=== PATIENT | female | born 1950 | race African-American/Black ===

== ENCOUNTER 2016-09-14 20:49 | Inpatient (IN) | payer OTHER ==
--- NOTE | ~2016-09-14 | OP ---
Record Of Operation [facility] [address] [place]. [address] NAME: YA SIMONS : 46 STATUS : ADM IN [facility]#: [id number] AGE: 66 ADM/REG DATE : 09/14/16 MR#: [id number] REPORT SERV DATE: 09/19/16 DICTATED BY: IVANA LUO DATE: 09/19/16 REPORT STATUS : Draft TRANSCRIBED BY: MODL DATE: 09/19/16 DATE OF PROCEDURE: 09/19/2016 PROCEDURE: Bronchoscopy, with bronchoalveolar lavage, and transbronchial biopsies. INDICATION FOR PROCEDURE: The patient is an end-stage renal disease patient, who is 66 years old, who has recurrent pneumonia, who was originally seen on our Consultative Service four days ago. She presents with a repeat right lower lobe pneumonia. The patient has been given broad-spectrum antibiotics, however, due to the recurrent abnormality on the CT scan in the right lower lobe, and concern of other etiologies other than pneumonia, it was felt that a bronchoscopy with transbronchial biopsies is warranted. PREOPERATIVE DIAGNOSIS: Right lower lobe pneumonia. POSTOPERATIVE DIAGNOSIS: Right lower lobe pneumonia. PROCEDURE NOTE: The patient was brought to the endoscopy suite. She was given induction agents, and intubated for airway protection, and sedation was per Anesthesiology. We placed the bronchoscope through the ET tube and examined the airways, we instilled lidocaine two aliquots into the lungs. She had good sedation throughout the procedure. She had easy friability of the endobronchial tissue on the left, and was noted to have significant secretions at that site. She also had significant secretions at the site of her right lung. We conducted a bronchoalveolar lavage of the right lower lobe. We then conducted six passes of transbronchial biopsies using fluoroscopy to ensure we did not go through the pleura. We obtain adequate tissue. It was felt that she had an underlying pneumonia and reactive mediastinal adenopathy is likely the etiology of the adenopathy. An endobronchial ultrasound, trans needle aspiration biopsy was not performed in this procedure, and just conducted the bronchoscopy with BAL and transbronchial biopsies. OUTCOME: Successful bronchoscopy for culture and cytologic tissue. HFQ/SHILOH Ivana Luo MD / [id number] CC: Laura Varner M.D.
--- NOTE | ~2016-09-14 | HP ---
History And Physical [facility] [id number] [place]. [address] NAME: YA SIMONS : 46 STATUS : ADM Charli PAT#: [id number] AGE: 66 ADM/REG DATE : 09/14/16 MR#: [id number] REPORT SERV DATE: 09/15/16 DICTATED BY: DATE: REPORT STATUS : Draft TRANSCRIBED BY: MODL DATE: 09/15/16 DATE OF ADMISSION: 09/14/2016 CHIEF COMPLAINT: Fever, shortness of breath. HISTORY OF PRESENT ILLNESS: Ms. Simons is a very pleasant 66-year-old black female with end- stage renal disease, dialyzes Monday, Monday, and Monday at [facility]. She was hospitalized in June with pneumonia and ended up with significant pleural effusion to the left, requiring VATS and chest tube. She was discharged to rehab, has done well, and been back at home, was doing well until yesterday. She went to dialysis and felt well before. During the treatment, she became more short of breath, had fevers, therefore was sent from the dialysis unit to the emergency room. In the emergency room, there was concern over some chest pain, however Ms. Simons does not relate any chest pain to me and she only had a mild elevation in her troponin at 0.06; however, on physical exam of her lungs, she has significant crackles to the right lower lobe and some fine crackles to the left lower lobe. She has had fevers up to 101.5 overnight and most likely has pneumonia and is going to be admitted for further evaluation and treatment. PAST MEDICAL HISTORY: End-stage renal disease, recent pneumonia with pleural effusion and VATS with chest tube, diabetes, hypertension, hyperlipidemia, coronary artery disease status post bypass, CVA, secondary hyperparathyroidism, anemia, peripheral vascular disease, osteoarthritis, obesity. ALLERGIES: CODEINE. FAMILY MEDICAL HISTORY: Positive for cardiovascular disease and diabetes. SOCIAL HISTORY: She lives with her . Both, her and are on dialysis. No tobacco, alcohol, or illicit drug use. MEDICATIONS: At home, acetaminophen, albuterol, Norvasc, vitamin C, aspirin, Tums, Coreg, Voltaren, Colace, Neurontin, Levemir, Humalog, melatonin, and multivitamin with minerals, Protonix, MiraLAX, and Zocor. PHYSICAL EXAMINATION: VITAL SIGNS: Temp 100, blood pressure 171/79, pulse 109, respiratory rate 14, O2 saturation is 96%. GENERAL: This is a pleasant, cooperative, black female. She is awake, alert, and oriented, answers questions appropriately. HEENT: Normocephalic, atraumatic. Conjunctivae clear. Sclerae anicteric. Oral mucosa is moist. NECK: No neck vein distention. RESPIRATIONS: Even and labored with just a minimal exertion of moving from bed to chair. She has significant crackles to the right lower lobe and a faint crackles to the left lower lobe. HEART: Rate is regular. She does have a faint systolic murmur. No rub or gallop. History And Physical [address] [place]. [address] NAME: YA SIMONS : 46 STATUS : ADM Charli PAT#: [id number] AGE: 66 ADM/REG DATE : 09/14/16 MR#: [id number] REPORT SERV DATE: 09/15/16 DICTATED BY: DATE: REPORT STATUS : Draft TRANSCRIBED BY: MODL DATE: 09/15/16 ABDOMEN: Soft, nontender. No CVA tenderness. BACK: Within normal limits. EXTREMITIES: No edema, cyanosis, or clubbing. SKIN: No unusual rash, skin lesions. NEURO: Generalized weakness. No focal deficits. Mood and affect, pleasant and appropriate. PERTINENT LABS AND X-RAYS: A chest x-ray is read as negative, but she still has some fluid on the left. Troponin 0.06. WBC 7, H and H 11 and 34, platelets 213,000. Sodium 135, potassium 4.8, chloride 98, CO2 25, BUN of 14, creatinine 4.47, and magnesium 1.7. Procalcitonin of 0.4, lactate 2.2. IMPRESSION: 1. Pneumonia. 2. Recent pleural effusions to the left requiring VATS and chest tube. 3. End-stage renal disease. 4. Hypertension. 5. Diabetes. 6. Coronary artery disease, status post bypass. PLAN: Admit to medical floor and monitor bed. Empiric cefepime and vancomycin have been started. We will go ahead and consult Pulmonology. Check CT of the chest and dialysis tomorrow. Repeat troponins. Usual medicines as appropriate that does include her beta dahiana. Further orders and recommendations pending clinical course. WILLIAM/MODL FELIPE Ortiz / [id number] CC: Laura Varner M.D.
--- NOTE | ~2016-09-14 | DS ---
Discharge Summary [facility] [address] [place]. [address] NAME: YA SIMONS : 46 STATUS : DIS IN PAT#: [id number] AGE: 66 ADM/REG DATE : 09/14/16 MR#: [id number] REPORT SERV DATE: 09/30/16 DICTATED BY: CLAUS SALINAS DATE: 09/29/16 REPORT STATUS : Draft TRANSCRIBED BY: SHILOH DATE: 09/29/16 Data Collection from hospitalization DISCHARGE DIAGNOSES: 1. End-stage renal disease. 2. Recurrent . 3. Uwe-ffqecqc-dlkyilxzz diabetes mellitus. 4. Hypertension. 5. Coronary artery disease with history of coronary artery bypass grafting. 6. Pneumonia. CONSULTATION: Isai Vargas PA-C. PROCEDURES PERFORMED: 1. CT of the chest without contrast, 09/15/2016. 2. Bronchoscopy with bronchoalveolar lavage and transbronchial biopsies 09/19/2016. PATHOLOGY: 1. Lung right lower lobe biopsy small carcinoid , hyperplasia, and patchy alveolar hemorrhage, otherwise minimal histologic changes. 2. Lung right lower lobe BAL for cytology, thin prep, negative for atypical or malignant cells. Bdhc-kz-ldlkdqyj acute inflammation. MEDICATIONS: Norvasc 10 mg at bedtime, aspirin 81 mg daily, Voltaren 2 g topically twice daily as needed, Tums E-X 1500 mg with meals, Coreg 6.25 mg twice daily, Neurontin 100 mg at bedtime, Levemir 10 units at bedtime, melatonin 5 mg at bedtime, multivitamin with minerals one daily, Protonix 40 mg every morning, Zocor 40 mg at bedtime, ProAir 2 puffs every 4 hours as needed, Colace 100 mg twice daily as needed, MiraLAX powder one packet daily as needed, Humalog U-200 KwikPen as directed, Tylenol 500 mg daily as needed. CONDITION AT DISCHARGE: Upon discharge, she did appear to be doing well and had no complaints. DISPOSITION: She had been discharged home to continue a renal diet with activity as directed. She was to follow up with Dr. Ivana Luo on 12/06/2016, follow up with her primary care physician as needed. HOSPITAL COURSE: This 66-year-old female had end-stage renal disease and dialyzes Monday, Monday, and Monday at [facility]. She was hospitalized in June with pneumonia and ended up with significant pleural effusion to the left requiring VATS and chest tube. She was discharged to rehab and had done well and had been back at home and was doing well until the day of admission. She went to dialysis and felt well before, during the treatment, she had become more short of breath, had fever, and therefore was sent from dialysis unit to the emergency room. In the emergency room, there was concern over some chest pain, however, patient did not relate any chest pain to me and she only had a mild elevation in her troponin at 0.06, however, on physical exam of her lungs, she had significant crackles to the right lower lobe and some fine crackles to the left lower lobe. She had fever up to 101.5 overnight and most likely had pneumonia and was going to be Discharge Summary [address] [address] NAME: YA SIMONS : 46 STATUS : DIS IN PAT#: [id number] AGE: 66 ADM/REG DATE : 09/14/16 MR#: [id number] REPORT SERV DATE: 09/30/16 DICTATED BY: CLAUS SALINAS DATE: 09/29/16 REPORT STATUS : Draft TRANSCRIBED BY: SHILOH DATE: 09/29/16 admitted for further evaluation and treatment. Upon admission to the hospital, she had been placed on a renal diet. She was begun on electrolyte replacement guidelines. She was given vancomycin 1 g IV x1 dose, as well as cefepime I g IV x1 dose. She was begun on Dilaudid 1 mg IV every 6 hours as needed, later that same day, IV Dilaudid was discontinued and she was placed instead on Lortab 5/325 one every 6 hours as needed. Following the day of admission, she did undergo the above CT of the chest without contrast. She was continued on supportive care. She had been seen by Isai Vargas for recurrent pneumonia and Levaquin was also added to complete healthcare acquired pneumonia coverage and immunoglobulin acid was to be checked, and she was also to undergo a bedside swallow, on 09/16, she was still short of breath. She was afebrile and her vital signs were stable. She was continued on supportive care. She was continued on hemodialysis during hospitalization. Bronchoscopy had been discussed with the patient, she was agreeable to proceed with this. On 09/17, she did state that she had felt worse and was noted to have a nonproductive cough. She was afebrile and had been continued on her current medications. She did undergo a bedside swallowing evaluation and a regular diet with thin liquids was recommended. No overt signs or symptoms of aspiration were noted. On 09/18, she did state that she was feeling some better, her WBCs were at 6.5. She was continued on her current medications. She was still complaining of cough with difficulty expectorating. She was noted to have yellow sputum. She was afebrile and her vital signs had remained stable. She was continued on bronchodilators. She was noted to have had only minimal improvement despite treatment with Levaquin. On 09/19, she had no new complaints noted. She did undergo the above bronchoscopy. She had tolerated this well and was transferred to the recovery room. On 09/20, she was awake and alert and was noted to have chest congestion, however, had no productive cough noted. She was continued on her current medications. On 09/21, she did look much better. She was afebrile and her vital signs had remained stable. She was felt to be breathing okay and had only an occasional cough noted. She was off antibiotics and had no fever noted. On 09/22, she did undergo a modified barium swallow and a mechanically soft diet with chopped meats with gravy and thin liquids was recommended. She did remain in stable condition and was then discharged on 09/23 with the above instructions. Information collected by: Fatmata Ayala.I.T. I submit the above information as my discharge summary. RW/MODL Claus Salinas M.D. / [id number] CC: Laura Varner M.D. Hisham F. Qutob, MD
--- NOTE | ~2016-09-14 | CN ---
Consultation Report [facility] [address]. [address] NAME: YA SIMONS : 46 STATUS : ADM IN PAT#: [id number] AGE: 66 ADM/REG DATE : 09/14/16 MR#: [id number] REPORT SERV DATE: 09/15/16 DICTATED BY: ISAI VALERIO DATE: 09/15/16 REPORT STATUS : Draft TRANSCRIBED BY: MODL DATE: 09/15/16 CONSULT NOTE DATE OF CONSULTATION: 09/15/2016 CHIEF COMPLAINT: Recurrent pneumonia. HISTORY OF PRESENT ILLNESS: Ms Ya Simons is a very pleasant 66-year-old female with a past medical history significant for previous pneumonias, loculated parapneumonic left effusion requiring video-assisted thoracoscopic surgery, and end-stage renal disease, who presents to [facility] with symptoms concerning for a new pneumonia. It should be noted that Ms Ya Nazario was hospitalized as recently as June. She has had a difficult course in the short interim. Ms Simons was seen by our Pulmonary Service on her last hospitalization. She has not had the opportunity to establish in our outpatient clinic. She is on chronic oxygen supplementation at 2 L. She is compliant with this therapy. She does have an albuterol inhaler, which she uses infrequently. She describes herself as a never smoker. She largely denies symptomatology related to obstructive sleep apnea. She has difficulty quantifying her exercise tolerance today. Again, the patient was seen in 06/2016 when she presented with pneumonia like symptoms as well as a left pleural effusion. The patient did undergo thoracentesis with 950 mL of straw colored fluid removed. Unfortunately, the lung did not fully expand and she eventually underwent chest tube placement with lytic therapy. Despite lytic therapy, she had persistence in her entrapped lung and as such, Cardiothoracic surgery was consulted for more definitive therapy. She did eventually undergo video-assisted thoracoscopic surgery with decortication of the lung. Cultures and pathology were negative from this procedure. The patient slowly improved and eventually transition to rehab where she resided for at least four weeks. She states that she had been home for approximately two weeks when she began to experience toothache. As recently as yesterday she states she began to "feel poorly," and she did develop a fever of over 100 degrees. She did present to our dialysis clinic for her regular dialysis, but was eventually sent to [facility] for more definitive therapy. Upon arrival, she was found to have a white blood cell count of 7300. She did have a chest x-ray performed, which did not demonstrate a focal infiltrate. There were some areas of atelectasis noted in the bases as well as changes consistent with her recent surgery. As she is somewhat more short of breath, demonstrating a productive cough as well as concomitant fever. She has been referred to the Pulmonary Service for assessment for recurrent pneumonia. Currently, Ms Simons is in Radiology holding, awaiting a CT of the chest. She states that she is chilling. She does demonstrate a productive cough that is mostly yellow in nature. She states that she has some mild wheezing in her chest. She has had previous pneumonia. She denies a formal diagnosis of COPD or chronic bronchitis. Consultation Report [facility] [address] [facility] [place]. [address] NAME: YA SIMONS : 46 STATUS : ADM IN [facility]#: [id number] AGE: 66 ADM/REG DATE : 09/14/16 MR#: [id number] REPORT SERV DATE: 09/15/16 DICTATED BY: ISAI VALERIO DATE: 09/15/16 REPORT STATUS : Draft TRANSCRIBED BY: SHILOH DATE: 09/15/16 The patient does have past cardiac history including coronary artery disease, status post CABG. She does have known hypertension. She currently denies any murmurs, angina, or palpitations or worsening lower extremity edema. In regard to constitutional symptoms, she currently denies nausea, vomiting, abdominal pain, or edema. PAST MEDICAL HISTORY: 1. End-stage renal disease, on dialysis Monday, Monday, Monday. 2. Diabetes mellitus. 3. Peripheral neuropathy. 4. Coronary artery disease, status post CABG. 5. Peripheral arterial disease. 6. Hypertension. 7. Loculated left pleural effusion, status post VATS. PAST SURGICAL HISTORY: 1. CABG. 2. Total abdominal hysterectomy with bilateral salpingo-oophorectomy. 3. Left upper extremity fistula placement. 4. VATS, left chest. FAMILY HISTORY: The patient denies family history of lung disease. SOCIAL HISTORY: The patient is . She has children, who are in good health. She previously worked at several occupations, the most notable may be working at a [employer], where she may have been exposed to significant airborne fibers. TOBACCO/ALCOHOL: As previously mentioned, the patient describes herself as a never smoker. She denies any recent alcohol or illicit drug use. MEDICATIONS: 1. Albuterol. 2. Amlodipine 10 mg. 3. Aspirin 81 mg. 4. Carvedilol 6.25 mg. 5. Gabapentin 100 mg. 6. Insulin. 7. Pantoprazole 40 mg. 8. Simvastatin 40 mg. 9. Melatonin 5 mg. ALLERGIES: THE PATIENT HAS KNOWN ALLERGY TO CODEINE. Consultation Report [facility] [id number] [facility] [place]. [address] NAME: YA SIMONS : 46 STATUS : ADM IN [facility]#: [id number] AGE: 66 ADM/REG DATE : 09/14/16 MR#: [id number] REPORT SERV DATE: 09/15/16 DICTATED BY: ISAI VALERIO DATE: 09/15/16 REPORT STATUS : Draft TRANSCRIBED BY: MODMayra DATE: 09/15/16 REVIEW OF SYSTEMS: A complete review of systems was performed with pertinent positives and negatives contained within the body of the HPI. PHYSICAL EXAMINATION: VITAL SIGNS: Blood pressure full 166/77, heart rate 104, T-max is 101.5, respiratory rate is 18, SpO2 100% on 2.5 L nasal cannula. GENERAL: The patient is a pleasant, well-nourished/well-developed female who is not currently exhibiting any signs of acute distress. Skin: Skin with appropriate texture and turgor. No rashes, lesions, or ulcers. Nails are clear without cyanosis or clubbing. HEENT: Head: Skull is normocephalic/atraumatic. Facies symmetric. No masses or lesions. Eyes: Sclera anicteric, conjunctiva pink without exudates. Extra ocular movements intact. Pupils are equal, round, reactive to light. Ears: Auricles and tragus without pain to palpation. Hearing is grossly intact. Nose: Bilateral nasal patency. Sinuses without tenderness upon palpation. Throat: The patient has poor dentition. Lips, oral mucosa, tongue, palate, and pharynx pink and moist without lesions. Uvula rises equally on phonation. Tongue midline without deviation. NECK: Neck supple. Trachea midline. No cervical lymphadenopathy appreciated. THORAX/LUNGS: Thorax is symmetric with equal chest rise. Breath sounds audible through entire field. No rales. Expiratory wheezing and scattered rhonchi throughout. CARDIOVASCULAR: Regular rate and rhythm. No murmurs, rubs, or gallops. Anterior chest without thrills, heaves, or lifts. ABDOMEN: Soft. Non-distended, non-tender. Active bowel sounds in all four quadrants. No hepatosplenomegaly noted. PERIPHERAL VASCULAR: No edema. No varicosities, stasis changes, open sores, ulcerations, or phlebitis. 2+ pulses in radial and dorsalis pedis. MUSCULOSKELETAL: Full AROM and PROM in all joints. No evidence of erythema, deformity, or crepitus. NEUROLOGIC: CN II - XII grossly intact. Good muscle bulk and tone bilaterally. Strength 5/5 throughout. PSYCHIATRIC: Patient demonstrates good judgment and insight. Pt is A&O x 3. ACCESSORY DATA: Reveals a white blood cell count of 7300, hemoglobin and hematocrit are 11.3 and 34.0. Procalcitonin is 0.40. Creatinine is 4.47. Troponins x2 are 0.06. IMPRESSION: 1. Recurrent pneumonia. 2. Recent VATS for loculated left pleural effusion. 3. End-stage renal disease. 4. Hypertension. 5. Diabetes mellitus. 6. Coronary artery disease, status post CABG. Consultation Report [address] [place]. [address] NAME: YA SIMONS : 46 STATUS : ADM IN [facility]#: [id number] AGE: 66 ADM/REG DATE : 09/14/16 MR#: [id number] REPORT SERV DATE: 09/15/16 DICTATED BY: ISAI VALERIO DATE: 09/15/16 REPORT STATUS : Draft TRANSCRIBED BY: MODMayra DATE: 09/15/16 PLAN: At this time, the patient has been provided vancomycin and cefepime. We will add Levaquin to complete HCAP coverage. We will surveil her white blood cell count moving forward. We agree with her previously ordered CT of the chest. As far as her source for recurrent infections, we will check an immunoglobulin assay. We will check a bedside swallow. Previous labs have been checked for the possibility of an interstitial process. We will consider this as well moving forward. We will also provide her with aggressive pulmonary toilet. The aforementioned impression and plan has been discussed with Dr. Jules, who will follow further recommendations. We thank you for this consult and look forward to participating in the care of Ms Ya Simons. GBS/MODL Isai Valerio PA-C / [id number] CC: Marito Salinas M.D.
[~2016-09-14 20:49] MED LIST: *UNABLE1; *UNABLE3; ACTOS45 PO; ALTA2.5 PO; AMOXIL500 MG PO; ASAB PO; COREG PO; COREG12 PO; COREG25 PO; COREG6 PO; CRESTOR PO; CRESTOR20 MG PO; DSS PO; FERROUS SULF325 M1 PO; FLAG500TAB PO; HALF81 PO; HALFPRIN PO; HYDROCHLOROT25 MG PO; INSNOV7030 SC; IRON PO; IRON325 MG PO; K500 PO; LEVEMFLXPN SC; LEVEMIR SC; LIPITOR40 PO; LISINOPRIL PO; MOBIC PO; MOBIC15 MG PO; NEBULIZER SOLUTION INH; NEUR100 PO; NORCO1 TA1 PO; NORV10 PO; NORV5 PO; NORVASC PO; NOVOLOG SC; NOVOPEN SC; PCET PO; PLAVIX PO; PR25 PO; PREM625 PO; PRILO PO; PRIN20 PO; PRINZIDE1 TA1 PO; PROTONIX PO; PROTONIX20 MG PO; RAMIPRIL PO; SODBICAR10 PO; T PO; TUMSROLL PO; ZESTRIL20 MG PO; ZOL50 PO; [UNRECOGNIZED DRUG - CODE] PO
[2016-09-14 21:13] LABS: BASOPHILS 0.3 %; BASOPHILS ABSOLUTE 0.02 10/3/uL (0.0-0.16); EOSINOPHILS 0.7 %; EOSINOPHILS ABSOLUTE 0.05 10/3/uL (0.0-0.53); ER CBC TAT 0 Hrs 09 Mins; HEMOGLOBIN 11.3 g/dL (12.0-16.0); IMMATURE GRANULOCYTES 0.1 %; IMMATURE GRANULOCYTES ABSOLUTE 0.01 10/3/uL (0.0-0.11); LYMPHOCYTES 18.3 %; LYMPHOCYTES ABSOLUTE 1.34 10/3/uL (0.67-4.30); MEAN CORPUS HGB CONC 33.2 g/dL (32.0-36.0); MEAN CORPUSCULAR HEMOGLOB 28.8 pg (26.0-34.0); MEAN CORPUSCULAR VOLUME 86.7 fL (80-100); MEAN PLATELET VOLUME 9.7 fL (9.2-13.0); MONOCYTES ABSOLUTE 0.81 10/3/uL (0.21-1.20); NEUTROPHILS 69.6 %; NEUTROPHILS ABSOLUTE 5.11 10/3/uL (2.02-8.40); RBC DISTRIBUTION WIDTH 15.4 % (12.0-16.0); RED CELL COUNT 3.92 10/6/uL (4.0-5.6); WHITE BLOOD CELLS 7.3 10/3/uL (4.5-10.5)
[2016-09-14 21:15] LABS: MANUAL DIFF NO %; PLATELET COUNT 213 10/3/uL (150-400)
[2016-09-14 21:33] LABS: CALCIUM, SERUM 8.7 MG/DL (8.5-10.4); CHLORIDE, SERUM 98 MMOL/L (96-112); CO2 (CARBON DIOXIDE) 25 MMOL/L (24-34); POTASSIUM, SERUM 4.8 MMOL/L (3.5-5.3); SODIUM, SERUM 135 MMOL/L (135-148)
[2016-09-14 21:34] LABS: BUN (BLOOD UREA NITROGEN) 14 MG/DL (6-23); CREATININE 4.47 MG/DL (0.55-1.02); GFR AFRICAN AMERICAN 11 ML/MIN (>=60); GFR NON AFRICAN AMERICAN 9 ML/MIN (>=60); GLUCOSE, SERUM 191 MG/DL (60-99)
[2016-09-14 21:35] LABS: CHEST PAIN PROFILE TAT 0 Hrs 31 Mins; TROPONIN I 0.06 NG/ML (<0.05)
[2016-09-14 22:28] LABS: INTERNATIONAL NORMAL RATI 1.1 UNITS (-); PARTIAL THROMBO TIME 24.3 SEC (22.5-37.2); PROTIME (NOT ORD) 14.1 SEC (12.0-14.5)
[2016-09-14] MEDS ORDERED: PROAIR HFA INH (23:47)
[2016-09-14] MEDS ORDERED: COREG6 PO (23:47)
[2016-09-14] MEDS ORDERED: DSS PO (23:47)
[2016-09-14] MEDS ORDERED: NORV10 PO (23:47)
[2016-09-14] MEDS ORDERED: ASAB PO (23:47)
[2016-09-14] MEDS ORDERED: LEVEMIR SC (23:48)
[2016-09-14] MEDS ORDERED: NEUR100 PO (23:48)
[2016-09-14] MEDS ORDERED: MULTIVIT/MIN PO (23:48)
[2016-09-14] MEDS ORDERED: MIRALAX POWDER1 PKT PO (23:48)
[2016-09-14] MEDS ORDERED: TUMS E-X750 M2 PO (23:49)
[2016-09-14] MEDS ORDERED: PROTONIX PO (23:49)
[2016-09-14] MEDS ORDERED: HUMALOG KW200 UNIT/1 (23:49)
[2016-09-14] MEDS ORDERED: ACET500CAP PO (23:50)
[2016-09-14] MEDS ORDERED: MELATONIN5 M1 PO (23:51)
[2016-09-14] MEDS ORDERED: ZOCOR40 PO (23:51)
[2016-09-14] MEDS ORDERED: VOLTAREN1 % TOP (23:52)
[2016-09-14] MEDS ORDERED: VITC500 PO (23:52)
[2016-09-15 05:36] LABS: TROPONIN I 0.06 NG/ML (<0.05)
[2016-09-15 14:32] LABS: PROCALCITONIN 0.45 ng/mL (<0.5)
[2016-09-15 16:30] LABS: ASCORBIC ACID (UR NOT ORDER) NEG (NEG); BILIRUBIN, URINE NEGATIVE (NEG); KETONE, URINE NEGATIVE (NEG); LEUKOCYTE ESTERASE(NOT OR NEG (NEG); WBC (NOT ORDERED) (RFLEX) < 1 (0-5)
[2016-09-15 17:32] LABS: TROPONIN I 0.04 NG/ML (<0.05)
[2016-09-16 08:33] LABS: BASOPHILS 0.2 %; BASOPHILS ABSOLUTE 0.01 10/3/uL (0.0-0.16); EOSINOPHILS 0 %; HEMATOCRIT 31.1 % (36.0-48.0); HEMOGLOBIN 10.6 g/dL (12.0-16.0); LYMPHOCYTES ABSOLUTE 1.61 10/3/uL (0.67-4.30); MEAN CORPUS HGB CONC 34.1 g/dL (32.0-36.0); MEAN CORPUSCULAR VOLUME 85.2 fL (80-100); MEAN PLATELET VOLUME 9.5 fL (9.2-13.0); MONOCYTES 9.1 %; MONOCYTES ABSOLUTE 0.59 10/3/uL (0.21-1.20); NEUTROPHILS 65.7 %; NEUTROPHILS ABSOLUTE 4.24 10/3/uL (2.02-8.40); PLATELET COUNT 189 10/3/uL (150-400); RED CELL COUNT 3.65 10/6/uL (4.0-5.6); WHITE BLOOD CELLS 6.5 10/3/uL (4.5-10.5)
[2016-09-16 08:34] LABS: MANUAL DIFF NO %
[2016-09-16 08:45] LABS: ALBUMIN 2.5 G/DL (3.5-5.0); CALCIUM, SERUM 8.2 MG/DL (8.5-10.4); CHLORIDE, SERUM 102 MMOL/L (96-112); CO2 (CARBON DIOXIDE) 25 MMOL/L (24-34); PHOSPHORUS, SERUM 3.5 MG/DL (2.5-4.5); POTASSIUM, SERUM 4.8 MMOL/L (3.5-5.3); SODIUM, SERUM 137 MMOL/L (135-148)
[2016-09-16 08:46] LABS: BUN (BLOOD UREA NITROGEN) 41 MG/DL (6-23); CREATININE 8.36 MG/DL (0.55-1.02); GFR AFRICAN AMERICAN 5 ML/MIN (>=60); GFR NON AFRICAN AMERICAN 4 ML/MIN (>=60); GLUCOSE, SERUM 96 MG/DL (60-99)
[2016-09-19 04:58] LABS: BASOPHILS 0.6 %; BASOPHILS ABSOLUTE 0.05 10/3/uL (0.0-0.16); EOSINOPHILS 8.4 %; EOSINOPHILS ABSOLUTE 0.66 10/3/uL (0.0-0.53); HEMATOCRIT 30.7 % (36.0-48.0); HEMOGLOBIN 10.4 g/dL (12.0-16.0); IMMATURE GRANULOCYTES 0.3 %; IMMATURE GRANULOCYTES ABSOLUTE 0.02 10/3/uL (0.0-0.11); LYMPHOCYTES 36.3 %; LYMPHOCYTES ABSOLUTE 2.86 10/3/uL (0.67-4.30); MEAN CORPUS HGB CONC 33.9 g/dL (32.0-36.0); MEAN CORPUSCULAR HEMOGLOB 28.8 pg (26.0-34.0); MEAN PLATELET VOLUME 9.8 fL (9.2-13.0); MONOCYTES 7.2 %; MONOCYTES ABSOLUTE 0.57 10/3/uL (0.21-1.20); NEUTROPHILS 47.2 %; NEUTROPHILS ABSOLUTE 3.72 10/3/uL (2.02-8.40); PLATELET COUNT 216 10/3/uL (150-400); RBC DISTRIBUTION WIDTH 14.5 % (12.0-16.0); RED CELL COUNT 3.61 10/6/uL (4.0-5.6); WHITE BLOOD CELLS 7.9 10/3/uL (4.5-10.5)
[2016-09-19 05:03] LABS: MANUAL DIFF NO %; PROTIME (NOT ORD) 13.1 SEC (12.0-14.5)
[2016-09-19 05:09] LABS: ALBUMIN 2.7 G/DL (3.5-5.0); CALCIUM, SERUM 8.4 MG/DL (8.5-10.4); CHLORIDE, SERUM 98 MMOL/L (96-112); CO2 (CARBON DIOXIDE) 21 MMOL/L (24-34); GLUCOSE, SERUM 102 MG/DL (60-99); POTASSIUM, SERUM 4.9 MMOL/L (3.5-5.3); SODIUM, SERUM 134 MMOL/L (135-148)
[2016-09-19 05:15] LABS: BUN (BLOOD UREA NITROGEN) 76 MG/DL (6-23); GFR AFRICAN AMERICAN 4 ML/MIN (>=60); GFR NON AFRICAN AMERICAN 3 ML/MIN (>=60); PHOSPHORUS, SERUM 5.1 MG/DL (2.5-4.5)
[2016-09-19 14:53] LABS: BD FL SOURCE (NOT ORD) BAL; BF TOTAL CELL CT (NOT ORD 2612 /MM3; BODY FLUID RBC (NOT ORD) 3000 /MM3
[2016-09-19 16:29] LABS: BD FL LYMPH (NOT ORD) 23 %; BF BASO (NOT OF) 0 %; BF LARGE MONONUCLEAR 74 %; BODY FLUID EOS (NOT ORD) 0 %; BODY FLUID SEG (NOT ORD) 3 %
[2016-09-20 05:31] LABS: BASOPHILS 0.5 %; BASOPHILS ABSOLUTE 0.03 10/3/uL (0.0-0.16); EOSINOPHILS 4.4 %; EOSINOPHILS ABSOLUTE 0.27 10/3/uL (0.0-0.53); HEMATOCRIT 30.7 % (36.0-48.0); HEMOGLOBIN 10.4 g/dL (12.0-16.0); IMMATURE GRANULOCYTES 0.2 %; IMMATURE GRANULOCYTES ABSOLUTE 0.01 10/3/uL (0.0-0.11); LYMPHOCYTES 34.1 %; MEAN CORPUS HGB CONC 33.9 g/dL (32.0-36.0); MEAN CORPUSCULAR HEMOGLOB 28.8 pg (26.0-34.0); MEAN PLATELET VOLUME 9.9 fL (9.2-13.0); MONOCYTES 8.9 %; MONOCYTES ABSOLUTE 0.55 10/3/uL (0.21-1.20); NEUTROPHILS 51.9 %; NEUTROPHILS ABSOLUTE 3.19 10/3/uL (2.02-8.40); PLATELET COUNT 223 10/3/uL (150-400); RBC DISTRIBUTION WIDTH 14.5 % (12.0-16.0); RED CELL COUNT 3.61 10/6/uL (4.0-5.6); WHITE BLOOD CELLS 6.2 10/3/uL (4.5-10.5)
[2016-09-20 05:32] LABS: MANUAL DIFF NO %
[2016-09-20 05:39] LABS: ALBUMIN 3.2 G/DL (3.5-5.0); CHLORIDE, SERUM 101 MMOL/L (96-112); GLUCOSE, SERUM 101 MG/DL (60-99); POTASSIUM, SERUM 4.3 MMOL/L (3.5-5.3); SODIUM, SERUM 139 MMOL/L (135-148)
[2016-09-20 05:40] LABS: BUN (BLOOD UREA NITROGEN) 41 MG/DL (6-23); CO2 (CARBON DIOXIDE) 27 MMOL/L (24-34); CREATININE 6.54 MG/DL (0.55-1.02); GFR AFRICAN AMERICAN 7 ML/MIN (>=60); GFR NON AFRICAN AMERICAN 6 ML/MIN (>=60); PHOSPHORUS, SERUM 4.1 MG/DL (2.5-4.5)
[2016-09-21 13:35] LABS: BASOPHILS 0.1 %; BASOPHILS ABSOLUTE 0.01 10/3/uL (0.0-0.16); EOSINOPHILS 4.1 %; EOSINOPHILS ABSOLUTE 0.38 10/3/uL (0.0-0.53); HEMOGLOBIN 9.5 g/dL (12.0-16.0); IMMATURE GRANULOCYTES 0.4 %; IMMATURE GRANULOCYTES ABSOLUTE 0.04 10/3/uL (0.0-0.11); LYMPHOCYTES 26.2 %; LYMPHOCYTES ABSOLUTE 2.42 10/3/uL (0.67-4.30); MEAN CORPUS HGB CONC 34.7 g/dL (32.0-36.0); MEAN CORPUSCULAR HEMOGLOB 28.8 pg (26.0-34.0); MEAN PLATELET VOLUME 9.3 fL (9.2-13.0); MONOCYTES ABSOLUTE 0.74 10/3/uL (0.21-1.20); NEUTROPHILS 61.2 %; NEUTROPHILS ABSOLUTE 5.63 10/3/uL (2.02-8.40); PLATELET COUNT 231 10/3/uL (150-400); RBC DISTRIBUTION WIDTH 14.7 % (12.0-16.0)
[2016-09-21 13:36] LABS: HEMATOCRIT 27.4 % (36.0-48.0); MANUAL DIFF NO %; WHITE BLOOD CELLS 9.2 10/3/uL (4.5-10.5)
[2016-09-21 13:47] LABS: ALBUMIN 3.1 G/DL (3.5-5.0); CHLORIDE, SERUM 96 MMOL/L (96-112); CO2 (CARBON DIOXIDE) 24 MMOL/L (24-34); POTASSIUM, SERUM 4.7 MMOL/L (3.5-5.3)
[2016-09-21 13:48] LABS: BUN (BLOOD UREA NITROGEN) 71 MG/DL (6-23); CREATININE 9.02 MG/DL (0.55-1.02); GFR AFRICAN AMERICAN 5 ML/MIN (>=60); GFR NON AFRICAN AMERICAN 4 ML/MIN (>=60); GLUCOSE, SERUM 204 MG/DL (60-99); PHOSPHORUS, SERUM 5.2 MG/DL (2.5-4.5); SODIUM, SERUM 132 MMOL/L (135-148)
[2016-09-22 06:30] LABS: HEMOGLOBIN 10.3 g/dL (12.0-16.0); MEAN CORPUS HGB CONC 33.6 g/dL (32.0-36.0); MEAN PLATELET VOLUME 9.8 fL (9.2-13.0); PLATELET COUNT 250 10/3/uL (150-400); RBC DISTRIBUTION WIDTH 14.7 % (12.0-16.0); RED CELL COUNT 3.55 10/6/uL (4.0-5.6); WHITE BLOOD CELLS 7.9 10/3/uL (4.5-10.5)
[2016-09-22 06:33] LABS: HEMATOCRIT 30.7 % (36.0-48.0); MANUAL DIFF YES %; MEAN CORPUSCULAR VOLUME 86.5 fL (80-100)
[2016-09-22 06:50] LABS: ALBUMIN 3.4 G/DL (3.5-5.0); CALCIUM, SERUM 9.1 MG/DL (8.5-10.4); CHLORIDE, SERUM 102 MMOL/L (96-112); CO2 (CARBON DIOXIDE) 21 MMOL/L (24-34); POTASSIUM, SERUM 4.6 MMOL/L (3.5-5.3); SODIUM, SERUM 137 MMOL/L (135-148)
[2016-09-22 06:51] LABS: BUN (BLOOD UREA NITROGEN) 36 MG/DL (6-23); CREATININE 5.59 MG/DL (0.55-1.02); GFR AFRICAN AMERICAN 8 ML/MIN (>=60); GFR NON AFRICAN AMERICAN 7 ML/MIN (>=60); GLUCOSE, SERUM 109 MG/DL (60-99); PHOSPHORUS, SERUM 2.8 MG/DL (2.5-4.5)
[2016-09-22 06:53] LABS: EOSINOPHILS 2 %; EOSINOPHILS ABSOLUTE (CALC) 0.16 10/3/uL (0.0-0.53); LYMPHOCYTES 29 %; LYMPHOCYTES ABSOLUTE (CALC) 2.29 10/3/uL (0.67-4.30); MONOCYTES 4 %; MONOCYTES ABSOLUTE (CALC) 0.32 10/3/uL (0.21-1.20); NEUTROPHILS ABSOLUTE (CALC) 5.14 10/3/uL (2.02-8.40); PLATELET ESTIMATE ADQ (ADEQUATE); RBC MORPHOLOGY NORM (NORMAL); SEGMENTED NEUTROPHIL (0) 65 %; TOTAL NUCLEATED CELLS 100
[2016-09-23 09:49] LABS: BASOPHILS 0.3 %; BASOPHILS ABSOLUTE 0.03 10/3/uL (0.0-0.16); EOSINOPHILS 4.2 %; EOSINOPHILS ABSOLUTE 0.43 10/3/uL (0.0-0.53); HEMOGLOBIN 8.9 g/dL (12.0-16.0); IMMATURE GRANULOCYTES 0.6 %; IMMATURE GRANULOCYTES ABSOLUTE 0.06 10/3/uL (0.0-0.11); LYMPHOCYTES 29.3 %; LYMPHOCYTES ABSOLUTE 2.99 10/3/uL (0.67-4.30); MEAN CORPUS HGB CONC 33.1 g/dL (32.0-36.0); MEAN CORPUSCULAR HEMOGLOB 28.4 pg (26.0-34.0); MEAN CORPUSCULAR VOLUME 85.9 fL (80-100); MEAN PLATELET VOLUME 9.4 fL (9.2-13.0); MONOCYTES 10.4 %; MONOCYTES ABSOLUTE 1.06 10/3/uL (0.21-1.20); NEUTROPHILS 55.2 %; NEUTROPHILS ABSOLUTE 5.64 10/3/uL (2.02-8.40); PLATELET COUNT 318 10/3/uL (150-400); RBC DISTRIBUTION WIDTH 14.6 % (12.0-16.0); RED CELL COUNT 3.13 10/6/uL (4.0-5.6); WHITE BLOOD CELLS 10.2 10/3/uL (4.5-10.5)
[2016-09-23 09:51] LABS: HEMATOCRIT 26.9 % (36.0-48.0)
[2016-09-23 09:52] LABS: MANUAL DIFF NO %
[2016-09-23 10:02] LABS: ALBUMIN 3.3 G/DL (3.5-5.0); BUN (BLOOD UREA NITROGEN) 60 MG/DL (6-23); CALCIUM, SERUM 9.1 MG/DL (8.5-10.4); CHLORIDE, SERUM 96 MMOL/L (96-112); CO2 (CARBON DIOXIDE) 26 MMOL/L (24-34); CREATININE 8.45 MG/DL (0.55-1.02); GFR AFRICAN AMERICAN 5 ML/MIN (>=60); GFR NON AFRICAN AMERICAN 4 ML/MIN (>=60); GLUCOSE, SERUM 149 MG/DL (60-99); POTASSIUM, SERUM 3.9 MMOL/L (3.5-5.3); SODIUM, SERUM 133 MMOL/L (135-148)
[2016-09-23] MEDS ORDERED: DUONEB INH ×2 (16:02)
[2016-09-23] MEDS ORDERED: TRANSSCOP TOP (16:03)
[2017-01-16] MEDS ORDERED: SEVE800T PO (17:23)
[2017-01-16] MEDS ORDERED: CATAPRES2 TOP (17:24)
[2017-01-16] MEDS ORDERED: NITROSTAT0.4 MG SL (17:25)
== END 2016-09-23 17:06 | disposition home or self-care (01) | DRG 166 ==
LOC: ER 20:49 → CDU1 23:28 → 6NO 09-15 14:32
PROVIDERS: Emergency Medicine; Internal Medicine Critical Care Medicine; Internal Medicine Nephrology; Nurse Practitioner; Registered Nurse
PROC: 0BBF8ZX Excision of Right Lower Lung Lobe, Via Natural or Artificial Opening Endoscopic, Diagnostic (ICD-10-PCS; principal; 2016-09-19 13:15)
PROC: 5A1D60Z (ICD-10-PCS; 2016-09-19 13:15)
PROC: 0B9F8ZX Drainage of Right Lower Lung Lobe, Via Natural or Artificial Opening Endoscopic, Diagnostic (ICD-10-PCS; 2016-09-19 13:15)
DX: J18.9 Pneumonia, unspecified organism (principal); N18.6 End stage renal disease; E11.22 Type 2 diabetes mellitus with diabetic chronic kidney disease; N25.81 Secondary hyperparathyroidism of renal origin; I12.0 Hypertensive chronic kidney disease with stage 5 chronic kidney disease or end stage renal disease; E78.5 Hyperlipidemia, unspecified; I25.10 Atherosclerotic heart disease of native coronary artery without angina pectoris; R09.02 Hypoxemia; E11.40 Type 2 diabetes mellitus with diabetic neuropathy, unspecified; I73.9 Peripheral vascular disease, unspecified; M19.90 Unspecified osteoarthritis, unspecified site; Z95.1 Presence of aortocoronary bypass graft; Z86.73 Personal history of transient ischemic attack (TIA), and cerebral infarction without residual deficits; Z87.01 Personal history of pneumonia (recurrent); Z82.49 Family history of ischemic heart disease and other diseases of the circulatory system; Z83.3 Family history of diabetes mellitus; Z99.81 Dependence on supplemental oxygen; Z90.710 Acquired absence of both cervix and uterus; Z57.5 Occupational exposure to toxic agents in other industries
CPT/HCPCS: 71010; 71250; 74230; 80048; 80069; 81001; 82784; 82962; 83605; 83735; 84145; 84484; 85025; 85610; 85730; 87015; 87040; 87070; 87102; 87116; 87205; 87449; 87641; 88112; 88305; 88341; 88342; 89051; 92610-GN; 92611-GN; 93005; 94640; 94667; 94668; 97116-GP; 97161-GP; 97165-GO; 99285; A9270-GY; G0257; J0330; J0692; J1956; J2250; J2370; J2550; J3010; J3370; P9047

== ENCOUNTER 2016-10-04 11:38 | Day surgery (SDC) | payer OTHER ==
--- NOTE | ~2016-10-04 | OP ---
Record Of Operation [facility] [address] [place]. [address] NAME: YA SIMONS : 46 STATUS : [facility]#: [id number] AGE: 66 ADM/REG DATE : 10/04/16 MR#: [id number] REPORT SERV DATE: 10/06/16 DICTATED BY: AKIL LIM DATE: 10/05/16 REPORT STATUS : Draft TRANSCRIBED BY: MODL DATE: 10/05/16 DATE OF PROCEDURE: 10/04/2016 PREOPERATIVE DIAGNOSIS: End-stage renal disease. POSTOPERATIVE DIAGNOSIS: End-stage renal disease. SURGERY PERFORMED: Placement of arterial venous graft from right brachial artery to brachial vein using a 4-7 step graft, Lafayette-Renaldo. SURGEON: Akil Lim M.D. ASSIST: Rios. DESCRIPTION OF PROCEDURE: The patient was placed under IV sedation. The right arm was prepped and draped in a sterile fashion. The brachial artery was exposed through a transverse incision made just above the antecubital fossa, carried through skin and subcutaneous tissue down to the brachial artery. It was dissected from surrounding tissue, then encircled doubly with vessel loops. A longitudinal incision was made in the upper arm over the brachial artery proximal. Dissection was carried down through the subcutaneous tissue down to the brachial vein. This was doubly looped with vessel loops. The vein was occluded proximally and distally. A 4-7 Lafayette-Renaldo graft was pulled through a tunnel connecting the two incisions. The vein was then opened with 11 blade and extended with Hay scissors. End-to-side anastomosis was done using 6-0 Prolene suture. When this was completed, a clamp was placed on the graft. The brachial artery then occluded proximally and distally. Arteriotomy was made with 11 blade and extended with Hay scissors. The 4 mm end was then sewn end to side using running 6-0 Prolene suture. When this was completed, retrograde and prograde flushing carried out at both anastomoses. The sutures were then tied and clamps were released. The patient was found to have good flow through the graft and also good brachial pulse distal to the arterial anastomosis. The wounds were then irrigated and closed with interrupted 3-0 Vicryl for subcutaneous tissue. Skin was closed with 4-0 Monocryl subcuticular stitch. Dermabond dressing applied. Estimated blood loss 50 mL. The patient tolerated the procedure well, went to recovery room in good condition. MG/MODL Akil Lim M.D. / [id number] CC: Laura Caldera M.D.
[~2016-10-04 11:38] MED LIST changes: +ACET500CAP PO; +DUONEB INH; +HUMALOG KW200 UNIT/1; +MELATONIN5 M1 PO; +MIRALAX POWDER1 PKT PO; +MULTIVIT/MIN PO; +PROAIR HFA INH; +TRANSSCOP TOP; +TUMS E-X750 M2 PO; +VITC500 PO; +VOLTAREN1 % TOP; +ZOCOR40 PO
[2016-10-04 12:38] LABS: HEMATOCRIT 27.3 % (36.0-48.0); HEMOGLOBIN 9.4 g/dL (12.0-16.0)
[2016-10-04 12:52] LABS: BUN (BLOOD UREA NITROGEN) 27 MG/DL (6-23); CALCIUM, SERUM 9.1 MG/DL (8.5-10.4); CHLORIDE, SERUM 98 MMOL/L (96-112); CO2 (CARBON DIOXIDE) 24 MMOL/L (24-34); CREATININE 6.51 MG/DL (0.55-1.02); GFR AFRICAN AMERICAN 7 ML/MIN (>=60); GFR NON AFRICAN AMERICAN 6 ML/MIN (>=60); GLUCOSE, SERUM 85 MG/DL (60-99); POTASSIUM, SERUM 4.9 MMOL/L (3.5-5.3); SODIUM, SERUM 133 MMOL/L (135-148)
[2017-01-16] MEDS ORDERED: SEVE800T PO (17:23)
[2017-01-16] MEDS ORDERED: CATAPRES2 TOP (17:24)
[2017-01-16] MEDS ORDERED: NITROSTAT0.4 MG SL (17:25)
== END 2016-10-04 15:59 | disposition home or self-care (01) ==
LOC: SDC 11:38
PROVIDERS: Surgery Vascular Surgery
PROC: 03170JD Bypass Right Brachial Artery to Upper Arm Vein with Synthetic Substitute, Open Approach (ICD-10-PCS; principal; 2016-10-04 12:45)
DX: I12.0 Hypertensive chronic kidney disease with stage 5 chronic kidney disease or end stage renal disease (principal); E10.22 Type 1 diabetes mellitus with diabetic chronic kidney disease; N18.6 End stage renal disease; I69.954 Hemiplegia and hemiparesis following unspecified cerebrovascular disease affecting left non-dominant side; I25.10 Atherosclerotic heart disease of native coronary artery without angina pectoris; Z95.1 Presence of aortocoronary bypass graft; Z99.2 Dependence on renal dialysis; Z88.5 Allergy status to narcotic agent; Z79.4 Long term (current) use of insulin; Z79.82 Long term (current) use of aspirin; Z79.899 Other long term (current) drug therapy
CPT/HCPCS: 80048; 82962; 85014; 85018; 93005; C1768; J2250; J2370; J3010; J3370

== ENCOUNTER 2016-10-07 06:53 | Inpatient (IN) | payer OTHER ==
--- NOTE | ~2016-10-07 | OP ---
Record Of [facility] [address] [place]. [address] NAME: YA SIMONS : 46 STATUS : ADM IN [facility]#: [id number] AGE: 66 ADM/REG DATE : 10/07/16 MR#: [id number] REPORT SERV DATE: 10/13/16 DICTATED BY: ABDIAZIZ HENDRIX DATE: 10/12/16 REPORT STATUS : Draft TRANSCRIBED BY: MODL DATE: 10/12/16 DATE OF PROCEDURE: 10/12/2016 The patient was extubated earlier in the day and developed stridor post extubation, which seem to have resolved after getting racemic epinephrine. The patient was given 5 mg of Decadron. Later that evening, she once again became stridorous, was in respiratory distress, foaming at the mouth, hypertensive, tachypneic, and tachycardic. The patient then had to be re-intubated. She was pre-oxygenated with 100% oxygen and O2 sat was 100% during the intubation. She was monitored throughout the intubation. She got 20 mg of etomidate and 5 mL of Diprivan for sedation. A #3 blade was used and a glide scope was used to visualize the vocal cords, which were mildly edematous. A #7 endotracheal tube was placed on the first attempt without any difficulty. Good breath sounds were heard bilaterally and CO2 sensor changed appropriate color from blue to yellow after intubation. Chest x-ray is pending. /SHILOH Abdiaziz Hendrix M.D. / [id number] CC: Laura Hampton Jr, M.D.
--- NOTE | ~2016-10-07 | CN ---
Consultation Report [facility] [address] [place]. [address] NAME: YA SIMONS : 46 STATUS : ADM IN [facility]#: [id number] AGE: 66 ADM/REG DATE : 10/07/16 MR#: [id number] REPORT SERV DATE: 10/07/16 DICTATED BY: TOYA VALENZUELA IV DATE: 10/07/16 REPORT STATUS : Draft TRANSCRIBED BY: MODMayra DATE: 10/07/16 CRITICAL CARE CONSULT DATE OF CONSULTATION: 10/07/2016 REASON FOR REQUEST: Acute hypoxemic respiratory failure. On mechanical ventilator, with borderline blood pressure. HISTORY OF PRESENT ILLNESS: History was obtained from the records and from the . Ms. Simons is a 66-year-old female with a history of end-stage renal disease, on dialysis, diabetes mellitus, peripheral neuropathy, coronary artery disease, cerebrovascular disease, peripheral arterial disease, hypertension, chronic pleuritis on the left and recurrent pneumonia, who was admitted with bilateral pulmonary infiltrates and hypoxemic respiratory failure, requiring intubation, and hypotension. The patient recently underwent an access on the right upper extremity. She has not had dialysis since Monday. She has had progressive weakness, shortness of breath, and nausea over the ensuing days. Initially, it was predominantly orthopnea and then shortness of breath even at rest. She became so short of breath that she woke her early this morning. They presented to the emergency room where she had bilateral pulmonary infiltrates and was in respiratory failure, requiring intubation, and is currently on mechanical ventilator. She had felt chilled, though the had no documented fevers. There is no cough, purulent sputum production, or hemoptysis. The patient does have bronchodilator medications at home. She is not on supplemental oxygen. PULMONARY HISTORY: Remarkable for no history of childhood asthma or known adult obstructive lung disease. She has had recurrent pneumonias and underwent bronchoscopy in August demonstrating inflammatory changes with negative cultures and a small carcinoid tumor. She is a lifelong nonsmoker. She is up-to-date on her immunizations. PAST MEDICAL HISTORY: Remarkable for: 1. End-stage renal disease, on dialysis. 2. Diabetes mellitus. 3. Peripheral neuropathy. 4. Coronary artery disease. 5. Cerebrovascular disease. 6. Peripheral artery disease. 7. Hypertension. 8. Chronic pleuritis status post VATS and decortication of the left lung. 9. Recurrent pneumonia. SURGERIES: 1. Coronary artery bypass grafting. 2. Total abdominal hysterectomy and bilateral salpingo-oophorectomy. 3. Left upper extremity fistula placement. Consultation Report [facility] [address] [place]. [address] NAME: YA SIMONS : 46 STATUS : ADM IN [facility]#: [id number] AGE: 66 ADM/REG DATE : 10/07/16 MR#: [id number] REPORT SERV DATE: 10/07/16 DICTATED BY: TOYA VALENZUELA IV DATE: 10/07/16 REPORT STATUS : Draft TRANSCRIBED BY: SHILOH DATE: 10/07/16 4. Right upper extremity fistula placement. 5. VATS of the left chest with decortication. 6. PermCath placement. 7. Amputation of the right 2nd toe. ALLERGIES: THE PATIENT IS REPORTEDLY INTOLERANT OF CODEINE. OUTPATIENT MEDICATIONS: Include DuoNeb every six hours as needed, ProAir every four hours as needed, Norvasc 10 mg at bedtime, aspirin 81 mg daily, Coreg 6.25 mg twice a day, Colace 100 mg twice a day, Neurontin 100 mg at bedtime, Levemir 10 units at bedtime, lispro on a sliding scale, melatonin 5 mg at bedtime, multivitamin daily, Percocet q.6 hours as needed, Protonix 40 mg daily, MiraLAX daily, scopolamine patch every 72 hours, and Zocor 40 mg at bedtime. SOCIAL HISTORY: Remarkable for no tobacco, alcohol, or illicit drug use. She is and has children. FAMILY HISTORY: Remarkable for no history of lung disease. REVIEW OF SYSTEMS: 14 systems reviewed. Pertinent positives as noted above. PHYSICAL EXAMINATION: GENERAL: This is a moderately overweight, elderly, female, currently sedated on mechanical ventilator. VITAL SIGNS: Temperature is 98.3 axillary, blood pressure is currently 104/44, pulse is 102, saturations are 100%, respiratory rate is 15. HEENT: The patient is normocephalic, atraumatic. Pupils do react to light. She has muddy sclerae. She has no drainage from either nasal passage. She has a Mallampati 3 airway with narrowing of the posterior pharyngeal space. She has an orogastric and orotracheal tube in position. NECK: Has a left EJ catheter in position. There is no palpable lymphadenopathy or thyromegaly. CHEST: The patient has inspiratory and expiratory rhonchi that improved with cough. There are bibasilar crackles. No wheezes are noted. Sternotomy to the chest. She has a PermCath in her right anterior chest. CARDIOVASCULAR: Jugular venous pulsations are difficult to elicit. She has 1+ carotid upstrokes. No obvious bruit. She has a very distant regular S1 and S2 with no clear murmur or S3. Peripheral pulses are diminished. She has a sternotomy scar. ABDOMEN: Surgical scars are noted. Obese, soft, nontender. There are hypoactive bowel sounds. There is no palpable hepatosplenomegaly or mass. EXTREMITIES: Demonstrate chronic venous stasis changes. There is amputation of the right 2nd toe with absence of the distal right great toe. No cyanosis, clubbing, or palpable cords. NEUROLOGIC: The patient does withdraw extremities to noxious stimuli. She is otherwise Consultation Report [address] [place]. [address] NAME: YA SIMONS : 46 STATUS : ADM IN [facility]#: [id number] AGE: 66 ADM/REG DATE : 10/07/16 MR#: [id number] REPORT SERV DATE: 10/07/16 DICTATED BY: TOYA VALENZUELA IV DATE: 10/07/16 REPORT STATUS : Draft TRANSCRIBED BY: SHILOH DATE: 10/07/16 sedated. IMAGING: Chest x-ray demonstrates prominent cardiac silhouette, postsurgical changes of the CABG. There are bilateral perihilar infiltrates most consistent with pulmonary edema. LABORATORY DATA: CBC: Hemoglobin 9.1, hematocrit 26.8, platelet count was 324,000, white blood cell count is 20.7. INR is 1.1. PTT is 27.2. Sodium is 126, potassium 5.9, chloride 91, bicarbonate 20, BUN 59, creatinine 11.3, glucose of 299, procalcitonin level is 0.26. ASSESSMENT AND PLAN: 1. Respiratory. The patient had ventilator changed to CMV, tidal volume of 500 mL, rate of 14, FiO2 of 60%, titrated to maintain saturations in the 90%-94% range. PEEP will be at 5. Blood gas will be obtained now and tomorrow. Daily x-ray will be obtained. The patient be on bronchodilator protocol, however, has no history of intrinsic lung disease. 2. Infectious disease. This is likely volume, however, blood cultures and tracheal aspirate were sent for Gram stain culture. Procalcitonin level is currently not elevated, though will be changed tomorrow. The patient is empirically on Zosyn and vancomycin per Nephrology. 3. Endocrinologic. Hemoglobin A1c will be obtained. Insulin drip for the markedly elevated blood sugar. Will re-initiate Levemir and insulin sliding scale when improved. 4. Gastrointestinal. Glucerna 1.2 at 30 mL an hour. We will confirm placement of the orogastric tube with KUB. Protonix will be given IV for gastrointestinal prophylaxis. 5. Hematologic. Heparin subcutaneous for deep vein thrombosis prophylaxis. Iron studies will be obtained with microcytic parameters. 6. Cardiovascular. We will check the troponin, likely is volume overload. Echocardiogram will be obtained with no recent study after her CABG, which will particularly evaluate for diastolic dysfunction. The patient was hypotensive in the emergency room and that has improved. She still has a marginal mean arterial pressure. Levophed will be given as needed to maintain mean arterial pressure greater than 65 particularly with dialysis. 7. Renal. Dialysis per Nephrology. 8. Neurologic. Propofol for sedation. Fentanyl if needed. Thank you for consulting us. We will follow the patient with you. Critical care time seen is 1015 hours to 1110 hours for 55 minutes, which does not include time for central line placement. FÉLIX/SHILOH Toya Valenzuela Consultation Report [facility] [id number] [place]. [address] NAME: YA SIMONS : 46 STATUS : ADM IN [facility]#: [id number] AGE: 66 ADM/REG DATE : 10/07/16 MR#: [id number] REPORT SERV DATE: 10/07/16 DICTATED BY: TOYA VALENZUELA IV DATE: 10/07/16 REPORT STATUS : Draft TRANSCRIBED BY: MODL DATE: 10/07/16 Laura STEPHENSON / [id number] CC: Laura Hampton Jr, M.D.
--- NOTE | ~2016-10-07 | DS ---
Discharge Summary [facility] [address] [place]. [address] NAME: YA SIMONS : 46 STATUS : DIS IN PAT#: [id number] AGE: 66 ADM/REG DATE : 10/07/16 MR#: [id number] REPORT SERV DATE: 11/17/16 DICTATED BY: JUVENTINO BENSON DATE: 11/16/16 REPORT STATUS : Draft TRANSCRIBED BY: SHILOH DATE: 11/16/16 Data Collection from hospitalization DISCHARGE DIAGNOSES: 1. Anterior myocardial infarction. 2. Congestive heart failure. 3. Hypotension. 4. Atherosclerotic cardiovascular disease. 5. Diabetes mellitus type 2. 6. History of hypertension. 7. End-stage renal disease, on hemodialysis. 8. Debility after prolonged hospital stay. 9. Anemia. 10.Recent pneumonia. 11.Weakness and deconditioning. 12.Likely cardiogenic shock. 13.Failure to thrive. CONSULTATIONS: Dr. Vern Briggs, Dr. Rafy Valenzuela, Dr. Ade Zuluaga, Dr. Johnathan Schneider. PROCEDURES PERFORMED: 1. Right femoral central line placement, 10/07/2016. 2. Echocardiogram, 10/08/2016. 3. Intubation, 10/12/2016. 4. Echocardiogram, 10/25/2016. 5. Swallowing study, 10/26/2016. 6. MRI of the brain without contrast, 10/30/2016. 7. Modified barium swallow, 10/26/2016. MEDICATIONS: Norvasc 10 mg daily, aspirin 81 mg daily, Coreg 6.25 mg twice daily, Neurontin 100 mg at bedtime, heparin 5000 units subcutaneously every 12 hours, NovoLog insulin level 3 sliding scale before meals and at bedtime, melatonin 4.5 mg at bedtime, multivitamin without minerals one daily, Protonix 40 mg before breakfast, transderm scopolamine patch one patch every three days, Zocor 40 mg at bedtime, Catapres 0.2 mg every seven days, Levemir 8 units subcutaneously daily, ProAir two puffs every 4 hours as needed, Colace 100 mg twice daily as needed, MiraLAX powder 17 g daily as needed, Tums EX 1500 mg with meals, DuoNeb every six hours as needed, Percocet 5/325 one every 8 hours as needed. CONDITION AT DISCHARGE: Upon discharge, she did appear to be doing well and had no complaints. DISPOSITION: She was discharged with transfer to [facility] to continue a renal mechanically soft diet with activity as discussed. HOSPITAL COURSE: This 66-year-old female had end-stage renal disease and dialyzes Monday, Monday, and Monday at the [facility] through a chronic IJ PermCath. She underwent elective outpatient placement of a right upper arm AV graft on 10/04/2016. Because she had nausea and did not feel well, she had skipped her usual Discharge Summary [facility] [address] [place]. [address] NAME: YA SIMONS : 46 STATUS : DIS IN PAT#: [id number] AGE: 66 ADM/REG DATE : 10/07/16 MR#: [id number] REPORT SERV DATE: 11/17/16 DICTATED BY: JUVENTINO BENSON DATE: 11/16/16 REPORT STATUS : Draft TRANSCRIBED BY: SHILOH DATE: 11/16/16 dialysis treatment on 10/05/2016. On the morning of admission around 4 a.m., she was brought in by EMS with dyspnea and bradycardia noted at home. She was intubated in the emergency room where a chest x-ray did show diffuse pulmonary edema. Potassium was at 5.9, sodium 126, white count 20,700. She was recently transferred up to MICU where she was being evaluated by Pulmonary and having a central line placed. She was to undergo further evaluation and treatment. Upon admission to the hospital, she had been placed on an n.p.o. diet as she had been placed on a ventilator in the emergency room. She was placed on electrolyte replacement protocol. Upon admission, she was continued on her home medications as well as sliding scale insulin and had also been placed on empiric antibiotics. She had also been seen on the day of admission by Dr. Rafy Valenzuela and had been found to have acute hypoxemic respiratory failure. He was to manage the patient's ventilator settings. She was also noted to have borderline blood pressure. She did undergo blood cultures, and tracheal aspirate was also sent for Gram stain culture. She had been placed empirically on Zosyn and vancomycin. She was on insulin drip for her markedly elevated blood sugar and when she was improved, she was to be re-initiated on Levemir and sliding scale insulin. She had also undergone placement of an orogastric tube and was to be on Glucerna 1.2 at 30 mL an hour. She had been placed on Protonix IV for gastrointestinal prophylaxis. She was also begun on subcutaneous heparin for deep vein thrombosis prophylaxis. She did undergo a right femoral central line placement. She was continued on hemodialysis during hospitalization. Following the day of admission, her temperature was at 99.8 and her vital signs were stable. She was continued on her current medications. Her tube feeding was changed to Nepro. She did undergo the above echocardiogram. On 10/09/2016, she was afebrile and her vital signs were stable. Her hemoglobin was at 6.8, hematocrit 20.2, and she did undergo transfusion with 1 unit of packed red blood cells. She was continued on supportive care and was in guarded condition. She had been evaluated by Dr. Johnathan Schneider and he did agree with heparin IV. On 10/10/2016, she was still sedated and on the ventilator. Her hemoglobin was up to 7.6, hematocrit 22.6, WBCs were 11.4. Her chest x-ray was felt to be improving. She was to continue with medical management for her cardiac condition for the time being, as she was still in guarded condition. On 10/12/2016, she did undergo transfusion with 1 unit of packed red blood cells. She had been extubated, however, later that same day, she had to be reintubated secondary to stridor and respiratory distress. This had been done by Dr. Tere Hendrix. IV heparin was discontinued on 10/13/[address] Schneider. She was continued on her current medications. On 10/15/2016, she appeared to be in no distress, however, she was not following commands. She was in sinus rhythm on telemetry. Her hemoglobin was at 9.8, hematocrit 29.6. She was then seen on 10/16/[address] Ade Zuluaga and was still sedated on the ventilator. Her temperature had been up to 99, and her vital signs were stable. She was felt to be making slow progress. On 10/17/2016, she was following commands and would awaken when sedation was decreased. She was afebrile and her vital signs were stable. Vent weaning was planned on 10/18/2016. She would awaken easily and could follow simple commands. She was undergoing vent weaning trial. She did undergo extubation on 10/20/2016. She was oriented to person and was moving her extremities to command. She did undergo a bedside swallowing evaluation and a strict n.p.o. status with an alternative means of nutrition was recommended. Her acute renal failure had resolved. On 10/21/2016, she did appear to be very weak, however, was continued on her current medications. She was noted to have slow mentation and a slightly altered mental status. She had been continued on supportive care. On 10/24/2016, she did undergo physical therapy evaluation. On 10/25/2016, she related that she was breathing better and she did undergo an echocardiogram. Discharge Summary [facility] [id number] [place]. [address] NAME: YA SIMONS : 46 STATUS : DIS IN PAT#: [id number] AGE: 66 ADM/REG DATE : 10/07/16 MR#: [id number] REPORT SERV DATE: 11/17/16 DICTATED BY: JUVENTINO BENSON DATE: 11/16/16 REPORT STATUS : Draft TRANSCRIBED BY: MODMayra DATE: 11/16/16 She was continued on supportive care. On 10/26/2016, she related that she was feeling better and had no complaints of shortness of breath. She was noted to have a good appetite. She did undergo a modified barium swallow and a mechanically soft diet with chopped meats with gravy and thin liquids was recommended. She was continued on supportive care. She did continue to do well. However, did have some complaints of weakness and was being evaluated for rehab. On 10/29/2016, she had been evaluated by Dr. Vern Briggs for Neurology evaluation. As she had been found to have bilateral hand weakness and an MRI of the brain was recommended, she was also continued on physical therapy. On 10/30/2016, she did undergo the above MRI of the brain. Dr. Briggs had recommended she undergo an outpatient EMG and nerve conduction study as well as follow up outpatient with Neurology. She did continue in stable condition and was then discharged on 11/01/2016 with the above instructions. Information collected by: Wood Ayala. I submit the above information as my discharge summary. ELENA/MODL Juventino Benson M.D. / [id number] CC: Laura Hampton Jr, M.D. Chun C. Huang, MD [facility] Schneider M.D.
--- NOTE | ~2016-10-07 | CN ---
Consultation Report [facility] [address]. [address] NAME: YA SIMONS : 46 STATUS : ADM IN PAT#: [id number] AGE: 66 ADM/REG DATE : 10/07/16 MR#: [id number] REPORT SERV DATE: 10/29/16 DICTATED BY: DATE: REPORT STATUS : Draft TRANSCRIBED BY: MODL DATE: 10/29/16 NEUROLOGY CONSULTATION DATE OF CONSULTATION: 10/29/2016 REASON FOR CONSULT: Upper extremity weakness and dropping things. HISTORY OF PRESENT ILLNESS: This is a 66-year-old female admitted to [facility] on 10/07/2016 secondary to shortness of breath. The patient at that time was noted to have respiratory failure requiring intubation as well as pneumonia. The patient was subsequently noted to have improvement of her respiratory issues as well as pneumonia. The patient was successfully extubated and transferred to the floor. The patient is currently complaining of roughly one week duration of weakness mostly in the hand, complains of dropping things in the right hand, although patient was also noted to have some weakness in left upper extremity. Denies significant change in strength in bilateral lower extremities. The patient denies any numbness and tingling. Otherwise, denies dysarthria, dysphagia, and denies any other sensory changes. The patient denies similar symptoms in the past. The patient does have a history of previous stroke in the past. The patient also has had hemodialysis, had a fistula placed in the right upper extremity roughly two weeks prior to evaluation. The patient denies any recent illness. Did have some chills prior to hospital admission but otherwise no recent fevers. No nausea, vomiting, chest pain. No current shortness of breath at the time of evaluation. SOCIAL HISTORY: Denies tobacco, alcohol, or recreational drug usage. PAST MEDICAL HISTORY: Significant for history of stroke in the past. History of recent pneumonia and respiratory failure requiring intubation; end-stage renal disease, on hemodialysis. The patient was also noted to have heart disease with patient's left ventricular ejection fraction of 35%-45% during current hospital admission. The patient also has peripheral arterial disease, peripheral neuropathy, chronic pleuritis and hypertension, and coronary artery disease and history of stroke in the past. FAMILY HISTORY: Significant for diabetes, hypertension, heart disease, stroke, and heart attack. REVIEW OF SYSTEMS: Negative except for those mentioned in the HPI. ALLERGIES: THE PATIENT REPORTS ALLERGY TO CODEINE AT THE TIME OF EVALUATION. CURRENT HOSPITAL MEDICATIONS: Consist of aspirin, Catapres, Coreg, DuoNeb, Proventil, heparin, Levemir, melatonin, Neurontin, Norvasc, NovoLog, Protonix, multivitamin, scopolamine patch, as well as Zocor. Consultation Report [place] [address] [facility] [place]. [address] NAME: YA SIMONS : 46 STATUS : ADM IN [facility]#: [id number] AGE: 66 ADM/REG DATE : 10/07/16 MR#: [id number] REPORT SERV DATE: 10/29/16 DICTATED BY: DATE: REPORT STATUS : Draft TRANSCRIBED BY: MODMayra DATE: 10/29/16 PHYSICAL EXAMINATION: VITAL SIGNS: At the time of evaluation, patient was noted to have vital signs with T-max of 98.9, heart rate of 82 to 94, respirations of 16 to 20, and blood pressure of 95 to 122 over 42 to 78. GENERAL: The patient is well developed, well nourished, in no acute distress. CARDIOVASCULAR: Mildly tachycardic at the time of evaluation. No carotid bruits were auscultated. PULMONARY: Clear to auscultation bilaterally. NEUROLOGICAL EXAMINATION: Generally, the patient is alert and oriented to person and place, not to month. Decreased attention span at the time of evaluation. Followed simple commands and was noted to follow most of 2-step commands, although at times had difficulties with complex commands. The patient was noted to have mild psychomotor retardation at time of evaluation. At times requires frequent refocus to keep patient on tasks at the time of evaluation. The patient demonstrated mild dysarthria, dysphonia, but no clear aphasia at the time of evaluation. Was noted to have difficulties with registration and recall. Cranial nerves 2 through 12, pupils equal, round, and reactive to light. Horizontal eye movement was noted to be intact. Intact peripheral vision. The patient was noted to have symmetrical facial expression and sensation. Midline tongue. Normal palatal movement at time of evaluation. Decreased hearing in bilateral ears. The patient does demonstrate 4+/5 for left upper extremity proximal shoulder abduction with the patient noted to have 4+/5 left upper extremity forearm flexion and extension. At the time of evaluation, patient was noted to have 3/5 left upper extremity white sugar syrup operator strength with patient noted to have 3/5 right upper extremity white sugar syrup operator strength and 4/5 right upper extremity forearm extension and flexion, 4/5 right upper extremity shoulder abduction. The patient was noted to have 4+/5 bilateral lower extremity hip flexion as well as 4+/5 bilateral lower extremity knee extension and flexion. The patient reports normal bilateral upper and lower extremities sensation at the time of evaluation. Diminished reflex in left upper and bilateral lower extremities. Absent reflex in bilateral biceps and brachioradialis reflexes. The patient demonstrated negative Tinel's sign in bilateral wrists at the time of evaluation. Denies change in sensation in the right upper extremity ulnar and radial sensory distribution. The patient does demonstrate some bilateral upper extremity ataxia on [id number] examination. Gait was not evaluated as the patient at baseline ambulates with a walker. LABORATORY STUDIES: Demonstrated white blood cell count of 7.7, hemoglobin of 10.4, hematocrit of 30.8, and platelet count of 269. Chemistry panel: Sodium 137, potassium 4.0, chloride 104, bicarb 23, BUN of 47, creatinine 7.49, glucose of 164, calcium of 9.6, and magnesium of 2.1. No recent neuroimaging was obtained at the time of evaluation. IMPRESSION: 1. Bilateral hand weakness. The patient complains of right hand weakness. Also bilateral hand white sugar syrup operator strength decrease was noted at time of evaluation with decreased right upper Consultation Report [place] [address] [facility] [place]. [address] NAME: YA SIMONS : 46 STATUS : ADM IN [facility]#: [id number] AGE: 66 ADM/REG DATE : 10/07/16 MR#: [id number] REPORT SERV DATE: 10/29/16 DICTATED BY: DATE: REPORT STATUS : Draft TRANSCRIBED BY: MODL DATE: 10/29/16 extremity proximal as well as distal strength noted on evaluation. Given patient has a history of previous stroke, we will check MRI of brain as well as C-spine without contrast. We will obtain laboratory study. Concern for possible stroke versus C-spine stenosis versus C-spine radiculopathy versus peripheral neuropathy. We will obtain PT/OT consult to evaluate and treat. RECOMMENDATIONS: 1. MRI of brain and C-spine without contrast. 2. PT/OT to evaluate and treat. 3. Serum CPK, aldolase, vitamin B12, folate, TSH, free T4, and ammonia level. 4. Pending diagnostic study, may consider discontinuing Zocor secondary to patient's muscle weakness. C[facility]/MODL Vern Briggs MD / [id number] CC: Laura Hampton Jr, M.D.
--- NOTE | ~2016-10-07 | HP ---
History And Physical [place] [address] [facility] [place]. [address] NAME: YA SIMONS : 46 STATUS : DIS IN PAT#: [id number] AGE: 66 ADM/REG DATE : 10/07/16 MR#: [id number] REPORT SERV DATE: 11/07/16 DICTATED BY: TOYA HERRING DATE: 10/07/16 REPORT STATUS : Draft TRANSCRIBED BY: MODL DATE: 10/07/16 DATE OF ADMISSION: 10/07/2016 REPORT TITLE: Nephrology Consultation CHIEF COMPLAINT: Dyspnea. HISTORY OF PRESENT ILLNESS: Ms. Simons is a 66-year-old female with ESRD. She dialyzes Monday, Monday, and Monday at the [facility] through a chronic IJ PermCath. She underwent elective outpatient placement of a right upper arm AV graft on 10/04. Because she had nausea and did not feel well, she skipped her usual dialysis treatment on 10/05. This morning around 4 a.m., she was brought in by EMS with dyspnea and bradycardia noted at home. She was intubated in the emergency room, where chest x-ray showed diffuse pulmonary edema. Potassium was 5.9, sodium 126. White count 20,700. She was recently transferred up to the MICU, where she is being evaluated by Pulmonary and having a central line placed. PAST MEDICAL HISTORY: 1. ESRD, Monday, Monday, Monday at [facility], chronic IJ PermCath. 2. Failed left upper arm access in the past with right upper arm AV graft placed on 10/04. 3. IDDM. 4. Hyperlipidemia. 5. Hypertension. 6. Recent admission in 08/2016 for pneumonia and bronchoscopy. She passed a swallow study during that hospitalization. 7. History of stroke. 8. Status post left VATS and decortication, 06/2016. 9. CABG, 02/2016. MEDICATIONS: On admission include DuoNeb inhaler, albuterol inhaler, amlodipine 10 mg daily, aspirin 81 mg daily, Tums 1500 mg with meals, Coreg 6.25 mg b.i.d., Colace, Neurontin 100 mg daily, Levemir 10 units h.s., melatonin 5 mg h.s., multivitamin daily, Percocet p.r.n., Protonix 40 mg daily, MiraLax p.r.n., scopolamine patch, simvastatin 40 mg h.s. FAMILY HISTORY: Unobtainable with the patient on the ventilator. SOCIAL HISTORY: Unobtainable with the patient on the ventilator. REVIEW OF SYSTEMS: Unobtainable with the patient on the ventilator. PHYSICAL EXAMINATION: VITAL SIGNS: Temperature 97.6, pulse 109, respirations 19, blood pressure 112/53, 100% sat on 80% FiO2. GENERAL: A sedated, ill-appearing female, on the ventilator. History And Physical [address] [address] NAME: YA SIMONS : 46 STATUS : DIS IN PAT#: [id number] AGE: 66 ADM/REG DATE : 10/07/16 MR#: [id number] REPORT SERV DATE: 11/07/16 DICTATED BY: TOYA HERRING DATE: 10/07/16 REPORT STATUS : Draft TRANSCRIBED BY: SHILOH DATE: 10/07/16 HEENT: She has periorbital and facial edema noted. LUNGS: Bilateral rhonchi without dyspnea. HEART: Rate tachycardic. Rhythm is regular. 2/6 murmur. ABDOMEN: Soft, nontender, nondistended. Bowel sounds present throughout without rebound or guarding. EXTREMITIES: Show 1+ edema. Right upper arm graft has audible bruit with faint thrill. SKIN: Shows no rash. OG tube is in place. Her right IJ PermCath bandages are clean, dry, and intact. LABORATORY DATA: Sodium 126, potassium 5.9, bicarb 20, BUN 59, creatinine 11.3, glucose 299, calcium 8.6, albumin 3.3. Liver function tests normal. White count 20,700; hemoglobin 9.1; platelets 324,000. ASSESSMENT AND PLAN: Ms. Simons has end-stage renal disease, who presents with respiratory failure, pulmonary edema, volume overload, leukocytosis, hyponatremia, hyperkalemia, hypoalbuminemia, and anemia. Her other medical history is extensive and is outlined as above. I suspect she likely has volume overload from missing dialysis on 10/05. May also have an underlying pneumonia, obscured by pulmonary edema. Admit to the ICU on the renal service. Consult Critical Care Medicine. Dialysis with aggressive ultrafiltration today and tomorrow. Cover with empiric antibiotics. Follow up cultures. Home medications with sliding scale insulin. Protect right arm from venipuncture. Family updated. Continue supportive care. All questions answered at bedside. They agree with treatment plan as outlined. NC/MODL Toya Herring M.D. / [id number] CC: Laura Hampton Jr, M.D. [facility]
--- NOTE | ~2016-10-07 | OP ---
Record Of Operation [facility] [address]. [address] NAME: YA SIMONS : 46 STATUS : ADM IN [facility]#: [id number] AGE: 66 ADM/REG DATE : 10/07/16 MR#: [id number] REPORT SERV DATE: 10/07/16 DICTATED BY: TOYA VALENZUELA IV DATE: 10/07/16 REPORT STATUS : Draft TRANSCRIBED BY: SHILOH DATE: 10/07/16 DATE OF PROCEDURE: 10/07/2016 RIGHT FEMORAL CENTRAL LINE NOTE PREOPERATIVE DIAGNOSIS: Hypertensive patient with inadequate IV access. POSTOPERATIVE DIAGNOSIS: Hypertensive patient with inadequate IV access. PROCEDURE: Right femoral central line. INDICATIONS: Inadequate IV access in a critically ill patient with inability to perform lines in the upper torso because of vascular access and a PermCath. CONTRAINDICATIONS: None. CONSENT: The risks, benefits, and alternative of the treatments were discussed with the patient's , who is acting as the surrogate decision maker. Possible complications were reviewed to include bleeding, infection, ischemia to the lower extremity, even potentially . The agreed to the procedure with consent signed, and witnessed on the front of the chart. INR was 1.1. PTT is 27.2, and platelet count was 324,000. SENIOR UI UX DEVELOPER: Toya Valenzuela M.D. METHOD: The patient was placed in the supine position with adequate visualization of the right groin. A SonoSite unit was used to guide access to the femoral vein. The area was prepped with chlorhexidine and sterilely draped. Using the SonoSite unit sterilely, the vein was localized which set just medial to the artery. The introducer needle was advanced into the vein; however, on first pass, guidewire would not advance. On second pass, there was good blood flow again with guidewire passed without difficulty. Using a dilator modified Seldinger technique, the triple-lumen catheter was advanced into the right femoral vein without difficulty. There was good blood flow from all ports. Sutured in place. Was dressed sterilely, and will now be used for resuscitation as needed. The patient tolerated the procedure well with estimated blood loss of less than 20 mL. FÉLIX/SHILOH Toya Valenzuela IV, M.D. / [id number] [facility] Of [place] [address] [facility] [place] [address] NAME: YA SIMONS : 46 STATUS : ADM IN PAT#: [id number] AGE: 66 ADM/REG DATE : 10/07/16 MR#: [id number] REPORT SERV DATE: 10/07/16 DICTATED BY: TOYA VALENZUELA IV DATE: 10/07/16 REPORT STATUS : Draft TRANSCRIBED BY: SHILOH DATE: 10/07/16 CC: Laura Hampton Jr, M.D.
[2016-10-07 06:13] LABS: BASOPHILS 0.2 %; BASOPHILS ABSOLUTE 0.04 10/3/uL (0.0-0.16); EOSINOPHILS ABSOLUTE 0.41 10/3/uL (0.0-0.53); HEMATOCRIT 26.8 % (36.0-48.0); HEMOGLOBIN 9.1 g/dL (12.0-16.0); IMMATURE GRANULOCYTES 0.4 %; IMMATURE GRANULOCYTES ABSOLUTE 0.09 10/3/uL (0.0-0.11); LYMPHOCYTES 41.9 %; LYMPHOCYTES ABSOLUTE 8.68 10/3/uL (0.67-4.30); MANUAL DIFF NO %; MEAN CORPUSCULAR HEMOGLOB 29.2 pg (26.0-34.0); MEAN CORPUSCULAR VOLUME 85.9 fL (80-100); MEAN PLATELET VOLUME 9.5 fL (9.2-13.0); MONOCYTES 6.8 %; NEUTROPHILS 48.7 %; NEUTROPHILS ABSOLUTE 10.11 10/3/uL (2.02-8.40); PLATELET COUNT 324 10/3/uL (150-400); RBC DISTRIBUTION WIDTH 15.3 % (12.0-16.0); RED CELL COUNT 3.12 10/6/uL (4.0-5.6); WHITE BLOOD CELLS 20.7 10/3/uL (4.5-10.5)
[2016-10-07 06:19] LABS: INTERNATIONAL NORMAL RATI 1.1 UNITS (-); PROTIME (NOT ORD) 13.9 SEC (12.0-14.5)
[2016-10-07 06:20] LABS: PARTIAL THROMBO TIME 27.2 SEC (22.5-37.2)
[2016-10-07 06:28] LABS: ALBUMIN 3.3 G/DL (3.5-5.0); CALCIUM, SERUM 8.6 MG/DL (8.5-10.4); CHLORIDE, SERUM 91 MMOL/L (96-112); CO2 (CARBON DIOXIDE) 20 MMOL/L (24-34); SGOT(AST) 11 U/L (5-40); SGPT(ALT) 10 U/L (5-65); TOTAL BILIRUBIN 0.5 MG/DL (0-1.2)
[2016-10-07 06:29] LABS: A/G RATIO 0.7 (0.7-1.9); ALKALINE PHOSPHATASE 111 U/L (45-117); BUN (BLOOD UREA NITROGEN) 59 MG/DL (6-23); GFR AFRICAN AMERICAN 4 ML/MIN (>=60); GFR NON AFRICAN AMERICAN 3 ML/MIN (>=60); GLOBULIN 4.9 G/DL (2.5-4.1); GLUCOSE, SERUM 299 MG/DL (60-99); POTASSIUM, SERUM 5.9 MMOL/L (3.5-5.3); SODIUM, SERUM 126 MMOL/L (135-148); TOTAL PROTEIN 8.2 G/DL (6.0-8.5)
[2016-10-07 06:42] LABS: EOSINOPHILS 4 %; EOSINOPHILS ABSOLUTE (CALC) 0.83 10/3/uL (0.0-0.53); ER DIFF TAT 0 Hrs 35 Mins; LYMPHOCYTES 46 %; LYMPHOCYTES ABSOLUTE (CALC) 9.52 10/3/uL (0.67-4.30); MONOCYTES 5 %; MONOCYTES ABSOLUTE (CALC) 1.04 10/3/uL (0.21-1.20); NEUTROPHILS ABSOLUTE (CALC) 9.32 10/3/uL (2.02-8.40); SEGMENTED NEUTROPHIL (0) 45 %; TOTAL NUCLEATED CELLS 100
[2016-10-07 06:43] LABS: PLATELET ESTIMATE ADQ (ADEQUATE); RBC MORPHOLOGY NORM (NORMAL)
[2016-10-07 06:59] LABS: PROCALCITONIN 0.26 ng/mL (<0.5)
[2016-10-07] MEDS ORDERED: PCET PO (07:26)
[2016-10-07 11:32] LABS: BE (BASE EXCESS) -6.8 MEQ/L (0 +/- 2.5); CARBOXYHEMOGLOBIN 0.7 % (0-3); HCO3 (ACTUAL BICARBONATE) 17.7 MEQ/L (23-27); HEMOBLOGIN CONTENT 9.2 G/DL (12-16); INSTRUMENT SERIAL # 8083; MODE CMV; O2 CONTENT 12.3 VOL% (18-24); OPERATOR ID 14472; PCO2 (CO2 TENSION) 32 MMHG (35-45); PO2 (O2 TENSION) 85 MMHG (79-93); SAMPLE Arterial; pH 7.36 (7.37-7.43)
[2016-10-07 11:33] LABS: TIDAL VOLUME 500 ML
[2016-10-07 11:54] LABS: ALLENS TEST Pos; CARBOXYHEMOGLOBIN 1.1 % (0-3); DEVICE VENT; HCO3 (ACTUAL BICARBONATE) 14.1 MEQ/L (23-27); HEMOBLOGIN CONTENT 9.8 G/DL (12-16); INSTRUMENT SERIAL # 8087; METHEMOGLOBIN 0.1 % (0-3); MODE CMV; O2 CONTENT 13.8 VOL% (18-24); OPERATOR ID 17589; PCO2 (CO2 TENSION) 37 MMHG (35-45); PO2 (O2 TENSION) 163 MMHG (79-93); SAMPLE Arterial
[2016-10-07 14:35] LABS: IRON BINDING CAPACITY 169 MCG/DL (225-410); IRON, SERUM 57 MCG/DL (35-150)
[2016-10-08 04:03] LABS: INSTRUMENT SERIAL # 8083
[2016-10-08 04:04] LABS: ALLENS TEST Pos; BE (BASE EXCESS) -3.1 MEQ/L (0 +/- 2.5); CARBOXYHEMOGLOBIN 1.5 % (0-3); METHEMOGLOBIN 0.1 % (0-3); MODE CMV; O2 CONTENT 10.3 VOL% (18-24); OPERATOR ID 16503; PCO2 (CO2 TENSION) 33 MMHG (35-45); PO2 (O2 TENSION) 66 MMHG (79-93); SAMPLE Arterial; TIDAL VOLUME 500 ML; pH 7.42 (7.37-7.43)
[2016-10-08 08:42] LABS: BASOPHILS 0.1 %; BASOPHILS ABSOLUTE 0.01 10/3/uL (0.0-0.16); EOSINOPHILS 0.6 %; EOSINOPHILS ABSOLUTE 0.08 10/3/uL (0.0-0.53); HEMOGLOBIN 7.5 g/dL (12.0-16.0); IMMATURE GRANULOCYTES 0.8 %; LYMPHOCYTES 12.9 %; LYMPHOCYTES ABSOLUTE 1.66 10/3/uL (0.67-4.30); MEAN CORPUS HGB CONC 34.4 g/dL (32.0-36.0); MEAN CORPUSCULAR HEMOGLOB 29.4 pg (26.0-34.0); MEAN CORPUSCULAR VOLUME 85.5 fL (80-100); MEAN PLATELET VOLUME 9.4 fL (9.2-13.0); MONOCYTES 7.2 %; MONOCYTES ABSOLUTE 0.93 10/3/uL (0.21-1.20); NEUTROPHILS 78.4 %; NEUTROPHILS ABSOLUTE 10.13 10/3/uL (2.02-8.40); RBC DISTRIBUTION WIDTH 15.5 % (12.0-16.0); RED CELL COUNT 2.55 10/6/uL (4.0-5.6); WHITE BLOOD CELLS 12.9 10/3/uL (4.5-10.5)
[2016-10-08 08:43] LABS: HEMATOCRIT 21.8 % (36.0-48.0); MANUAL DIFF NO %; PLATELET COUNT 222 10/3/uL (150-400)
[2016-10-08 09:42] LABS: ALBUMIN 3.3 G/DL (3.5-5.0); CALCIUM, SERUM 8.4 MG/DL (8.5-10.4); CO2 (CARBON DIOXIDE) 23 MMOL/L (24-34); PHOSPHORUS, SERUM 4.3 MG/DL (2.5-4.5); POTASSIUM, SERUM 5.5 MMOL/L (3.5-5.3)
[2016-10-08 09:44] LABS: CHLORIDE, SERUM 102 MMOL/L (96-112); SODIUM, SERUM 134 MMOL/L (135-148)
[2016-10-08 09:45] LABS: BUN (BLOOD UREA NITROGEN) 32 MG/DL (6-23); CREATININE 6.99 MG/DL (0.55-1.02); GFR AFRICAN AMERICAN 6 ML/MIN (>=60); GFR NON AFRICAN AMERICAN 6 ML/MIN (>=60); GLUCOSE, SERUM 170 MG/DL (60-99); TROPONIN I 2.43 NG/ML (<0.05)
[2016-10-09 04:01] LABS: ALLENS TEST Pos; BE (BASE EXCESS) 3.1 MEQ/L (0 +/- 2.5); CARBOXYHEMOGLOBIN 1.5 % (0-3); HCO3 (ACTUAL BICARBONATE) 27.2 MEQ/L (23-27); HEMOBLOGIN CONTENT 6.9 G/DL (12-16); INSTRUMENT SERIAL # 8083; METHEMOGLOBIN 0.2 % (0-3); MODE CMV; O2 CONTENT 9.6 VOL% (18-24); OPERATOR ID 16503; PCO2 (CO2 TENSION) 39 MMHG (35-45); PO2 (O2 TENSION) 114 MMHG (79-93); SAMPLE Arterial; TIDAL VOLUME 500 ML; pH 7.46 (7.37-7.43)
[2016-10-09 04:25] LABS: BASOPHILS 0.1 %; BASOPHILS ABSOLUTE 0.01 10/3/uL (0.0-0.16); EOSINOPHILS 1.6 %; HEMOGLOBIN 6.8 g/dL (12.0-16.0); IMMATURE GRANULOCYTES 0.5 %; IMMATURE GRANULOCYTES ABSOLUTE 0.06 10/3/uL (0.0-0.11); LYMPHOCYTES 13.4 %; LYMPHOCYTES ABSOLUTE 1.69 10/3/uL (0.67-4.30); MEAN CORPUS HGB CONC 33.7 g/dL (32.0-36.0); MEAN CORPUSCULAR HEMOGLOB 29.6 pg (26.0-34.0); MEAN CORPUSCULAR VOLUME 87.8 fL (80-100); MEAN PLATELET VOLUME 9.7 fL (9.2-13.0); MONOCYTES 4.4 %; MONOCYTES ABSOLUTE 0.56 10/3/uL (0.21-1.20); NEUTROPHILS ABSOLUTE 10.09 10/3/uL (2.02-8.40); PLATELET COUNT 214 10/3/uL (150-400); RBC DISTRIBUTION WIDTH 15.8 % (12.0-16.0); WHITE BLOOD CELLS 12.6 10/3/uL (4.5-10.5)
[2016-10-09 04:26] LABS: HEMATOCRIT 20.2 % (36.0-48.0)
[2016-10-09 04:27] LABS: ALBUMIN 3.2 G/DL (3.5-5.0); CALCIUM, SERUM 9.2 MG/DL (8.5-10.4); CHLORIDE, SERUM 107 MMOL/L (96-112); CO2 (CARBON DIOXIDE) 26 MMOL/L (24-34); GLUCOSE, SERUM 179 MG/DL (60-99); MANUAL DIFF NO %
[2016-10-09 04:29] LABS: BUN (BLOOD UREA NITROGEN) 22 MG/DL (6-23); CREATININE 5.63 MG/DL (0.55-1.02); GFR AFRICAN AMERICAN 8 ML/MIN (>=60); GFR NON AFRICAN AMERICAN 7 ML/MIN (>=60); PHOSPHORUS, SERUM 2.6 MG/DL (2.5-4.5); POTASSIUM, SERUM 3.7 MMOL/L (3.5-5.3); SODIUM, SERUM 142 MMOL/L (135-148)
[2016-10-09 12:57] LABS: HEMOGLOBIN 7.6 g/dL (12.0-16.0)
[2016-10-09 12:58] LABS: HEMATOCRIT 22.8 % (36.0-48.0)
[2016-10-09 20:10] LABS: HEMATOCRIT 22.4 % (36.0-48.0); HEMOGLOBIN 7.7 g/dL (12.0-16.0)
[2016-10-10 03:19] LABS: BASOPHILS 0.1 %; BASOPHILS ABSOLUTE 0.01 10/3/uL (0.0-0.16); EOSINOPHILS 5.4 %; EOSINOPHILS ABSOLUTE 0.61 10/3/uL (0.0-0.53); HEMATOCRIT 22.6 % (36.0-48.0); HEMOGLOBIN 7.6 g/dL (12.0-16.0); IMMATURE GRANULOCYTES 0.4 %; IMMATURE GRANULOCYTES ABSOLUTE 0.05 10/3/uL (0.0-0.11); LYMPHOCYTES 13.7 %; LYMPHOCYTES ABSOLUTE 1.56 10/3/uL (0.67-4.30); MEAN CORPUS HGB CONC 33.6 g/dL (32.0-36.0); MEAN CORPUSCULAR HEMOGLOB 29.7 pg (26.0-34.0); MEAN CORPUSCULAR VOLUME 88.3 fL (80-100); MEAN PLATELET VOLUME 9.5 fL (9.2-13.0); MONOCYTES 6.4 %; MONOCYTES ABSOLUTE 0.73 10/3/uL (0.21-1.20); NEUTROPHILS ABSOLUTE 8.39 10/3/uL (2.02-8.40); PLATELET COUNT 189 10/3/uL (150-400); RBC DISTRIBUTION WIDTH 15.4 % (12.0-16.0); RED CELL COUNT 2.56 10/6/uL (4.0-5.6); WHITE BLOOD CELLS 11.4 10/3/uL (4.5-10.5)
[2016-10-10 03:20] LABS: MANUAL DIFF NO %
[2016-10-10 03:47] LABS: A/G RATIO 0.7 (0.7-1.9); ALBUMIN 2.9 G/DL (3.5-5.0); CALCIUM, SERUM 8.9 MG/DL (8.5-10.4); CHLORIDE, SERUM 103 MMOL/L (96-112); CO2 (CARBON DIOXIDE) 25 MMOL/L (24-34); GLOBULIN 4.4 G/DL (2.5-4.1); GLUCOSE, SERUM 204 MG/DL (60-99); POTASSIUM, SERUM 3.8 MMOL/L (3.5-5.3); SGOT(AST) 59 U/L (5-40); SGPT(ALT) 22 U/L (5-65); SODIUM, SERUM 140 MMOL/L (135-148); TOTAL PROTEIN 7.3 G/DL (6.0-8.5); VANCOMYCIN TROUGH 28.3 MCG/ML (10.0-20.0)
[2016-10-10 03:54] LABS: BUN (BLOOD UREA NITROGEN) 37 MG/DL (6-23); CREATININE 7.16 MG/DL (0.55-1.02); GFR AFRICAN AMERICAN 6 ML/MIN (>=60); GFR NON AFRICAN AMERICAN 5 ML/MIN (>=60); PHOSPHORUS, SERUM 3.4 MG/DL (2.5-4.5)
[2016-10-10 03:55] LABS: ALKALINE PHOSPHATASE 156 U/L (45-117); TOTAL BILIRUBIN 1.2 MG/DL (0-1.2); TROPONIN I 4.21 NG/ML (<0.05)
[2016-10-10 04:37] LABS: ALLENS TEST Pos; BE (BASE EXCESS) -1.7 MEQ/L (0 +/- 2.5); CARBOXYHEMOGLOBIN 1.3 % (0-3); HCO3 (ACTUAL BICARBONATE) 22.9 MEQ/L (23-27); HEMOBLOGIN CONTENT 6.8 G/DL (12-16); INSTRUMENT SERIAL # 8083; METHEMOGLOBIN 0.2 % (0-3); MODE CMV; O2 CONTENT 9.6 VOL% (18-24); OPERATOR ID 13415; PCO2 (CO2 TENSION) 38 MMHG (35-45); PO2 (O2 TENSION) 134 MMHG (79-93); SAMPLE Arterial; TIDAL VOLUME 500 ML
[2016-10-10 13:55] LABS: HEMATOCRIT 28.2 % (36.0-48.0); HEMOGLOBIN 9.5 g/dL (12.0-16.0)
[2016-10-11 05:40] LABS: BASOPHILS 0.2 %; BASOPHILS ABSOLUTE 0.02 10/3/uL (0.0-0.16); EOSINOPHILS ABSOLUTE 0.48 10/3/uL (0.0-0.53); HEMATOCRIT 24.1 % (36.0-48.0); HEMOGLOBIN 7.9 g/dL (12.0-16.0); IMMATURE GRANULOCYTES 1.7 %; IMMATURE GRANULOCYTES ABSOLUTE 0.21 10/3/uL (0.0-0.11); LYMPHOCYTES 17.3 %; LYMPHOCYTES ABSOLUTE 2.08 10/3/uL (0.67-4.30); MANUAL DIFF NO %; MEAN CORPUS HGB CONC 32.8 g/dL (32.0-36.0); MEAN CORPUSCULAR HEMOGLOB 29.5 pg (26.0-34.0); MEAN CORPUSCULAR VOLUME 89.9 fL (80-100); MEAN PLATELET VOLUME 9.5 fL (9.2-13.0); MONOCYTES ABSOLUTE 1.08 10/3/uL (0.21-1.20); NEUTROPHILS 67.8 %; NEUTROPHILS ABSOLUTE 8.18 10/3/uL (2.02-8.40); PLATELET COUNT 202 10/3/uL (150-400); RBC DISTRIBUTION WIDTH 15.7 % (12.0-16.0); RED CELL COUNT 2.68 10/6/uL (4.0-5.6); WHITE BLOOD CELLS 12.1 10/3/uL (4.5-10.5)
[2016-10-11 05:44] LABS: BUN (BLOOD UREA NITROGEN) 33 MG/DL (6-23); CALCIUM, SERUM 9.3 MG/DL (8.5-10.4); CHLORIDE, SERUM 104 MMOL/L (96-112); CO2 (CARBON DIOXIDE) 27 MMOL/L (24-34); CREATININE 5.35 MG/DL (0.55-1.02); GFR AFRICAN AMERICAN 9 ML/MIN (>=60); GFR NON AFRICAN AMERICAN 8 ML/MIN (>=60); GLUCOSE, SERUM 172 MG/DL (60-99); PHOSPHORUS, SERUM 3.2 MG/DL (2.5-4.5); POTASSIUM, SERUM 4.1 MMOL/L (3.5-5.3); SODIUM, SERUM 140 MMOL/L (135-148)
[2016-10-12 03:54] LABS: BASOPHILS 0.3 %; BASOPHILS ABSOLUTE 0.04 10/3/uL (0.0-0.16); EOSINOPHILS 4.6 %; EOSINOPHILS ABSOLUTE 0.62 10/3/uL (0.0-0.53); HEMATOCRIT 24.9 % (36.0-48.0); HEMOGLOBIN 8.1 g/dL (12.0-16.0); IMMATURE GRANULOCYTES 2.8 %; IMMATURE GRANULOCYTES ABSOLUTE 0.38 10/3/uL (0.0-0.11); LYMPHOCYTES 14.5 %; LYMPHOCYTES ABSOLUTE 1.95 10/3/uL (0.67-4.30); MEAN CORPUS HGB CONC 32.5 g/dL (32.0-36.0); MEAN CORPUSCULAR HEMOGLOB 29.3 pg (26.0-34.0); MEAN CORPUSCULAR VOLUME 90.2 fL (80-100); MEAN PLATELET VOLUME 9.2 fL (9.2-13.0); MONOCYTES 10.1 %; MONOCYTES ABSOLUTE 1.36 10/3/uL (0.21-1.20); NEUTROPHILS 67.7 %; NEUTROPHILS ABSOLUTE 9.12 10/3/uL (2.02-8.40); PLATELET COUNT 227 10/3/uL (150-400); RBC DISTRIBUTION WIDTH 15.4 % (12.0-16.0); RED CELL COUNT 2.76 10/6/uL (4.0-5.6); WHITE BLOOD CELLS 13.5 10/3/uL (4.5-10.5)
[2016-10-12 03:55] LABS: MANUAL DIFF NO %
[2016-10-12 04:13] LABS: A/G RATIO 0.6 (0.7-1.9); CHLORIDE, SERUM 102 MMOL/L (96-112); CO2 (CARBON DIOXIDE) 23 MMOL/L (24-34); GLOBULIN 4.7 G/DL (2.5-4.1); POTASSIUM, SERUM 4.2 MMOL/L (3.5-5.3); SGOT(AST) 72 U/L (5-40); SGPT(ALT) 23 U/L (5-65); SODIUM, SERUM 139 MMOL/L (135-148); TOTAL PROTEIN 7.7 G/DL (6.0-8.5)
[2016-10-12 04:14] LABS: ALKALINE PHOSPHATASE 239 U/L (45-117); BUN (BLOOD UREA NITROGEN) 53 MG/DL (6-23); CREATININE 7.55 MG/DL (0.55-1.02); GFR AFRICAN AMERICAN 6 ML/MIN (>=60); GFR NON AFRICAN AMERICAN 5 ML/MIN (>=60); GLUCOSE, SERUM 109 MG/DL (60-99); PHOSPHORUS, SERUM 4.8 MG/DL (2.5-4.5); TOTAL BILIRUBIN 0.6 MG/DL (0-1.2)
[2016-10-13 03:48] LABS: ALLENS TEST Pos; BE (BASE EXCESS) -3.8 MEQ/L (0 +/- 2.5); CARBOXYHEMOGLOBIN 0.7 % (0-3); HCO3 (ACTUAL BICARBONATE) 20.6 MEQ/L (23-27); HEMOBLOGIN CONTENT 10.9 G/DL (12-16); INSTRUMENT SERIAL # 8083; METHEMOGLOBIN 0.1 % (0-3); MODE CMV; O2 CONTENT 15.6 VOL% (18-24); OPERATOR ID 23712; PCO2 (CO2 TENSION) 35 MMHG (35-45); PO2 (O2 TENSION) 203 MMHG (79-93); SAMPLE Arterial; TIDAL VOLUME 550 ML; pH 7.39 (7.37-7.43)
[2016-10-13 04:00] LABS: MEAN CORPUS HGB CONC 33.2 g/dL (32.0-36.0); MEAN CORPUSCULAR HEMOGLOB 29.6 pg (26.0-34.0); MEAN PLATELET VOLUME 9.7 fL (9.2-13.0); NUCLEATED RED BLOOD CELLS 0.8 /100WBC (0-0); PLATELET COUNT 258 10/3/uL (150-400); RBC DISTRIBUTION WIDTH 15.4 % (12.0-16.0); WHITE BLOOD CELLS 14.6 10/3/uL (4.5-10.5)
[2016-10-13 04:01] LABS: HEMATOCRIT 29.8 % (36.0-48.0); HEMOGLOBIN 9.9 g/dL (12.0-16.0); RED CELL COUNT 3.35 10/6/uL (4.0-5.6)
[2016-10-13 04:02] LABS: MANUAL DIFF YES %
[2016-10-13 04:11] LABS: BAND NEUTROPHILS 12 %; IMMATURE GRANS ABSOLUTE (CALC) 0.88 10/3/uL (0.0-0.11); LYMPHOCYTES 6 %; LYMPHOCYTES ABSOLUTE (CALC) 0.88 10/3/uL (0.67-4.30); METAMYELOCYTES 4 %; MONOCYTES 2 %; MONOCYTES ABSOLUTE (CALC) 0.29 10/3/uL (0.21-1.20); MYELOCYTES 2 %; NEUTROPHILS ABSOLUTE (CALC) 12.56 10/3/uL (2.02-8.40); SEGMENTED NEUTROPHIL (0) 74 %; TOTAL NUCLEATED CELLS 100
[2016-10-13 04:12] LABS: PLATELET ESTIMATE ADQ (ADEQUATE)
[2016-10-13 04:13] LABS: RBC MORPHOLOGY NORM (NORMAL)
[2016-10-13 04:23] LABS: ALBUMIN 3.3 G/DL (3.5-5.0); BUN (BLOOD UREA NITROGEN) 43 MG/DL (6-23); CALCIUM, SERUM 9.7 MG/DL (8.5-10.4); CHLORIDE, SERUM 99 MMOL/L (96-112); CO2 (CARBON DIOXIDE) 25 MMOL/L (24-34); CREATININE 5.39 MG/DL (0.55-1.02); GFR AFRICAN AMERICAN 9 ML/MIN (>=60); GFR NON AFRICAN AMERICAN 8 ML/MIN (>=60); PHOSPHORUS, SERUM 4.6 MG/DL (2.5-4.5); POTASSIUM, SERUM 4.4 MMOL/L (3.5-5.3); SODIUM, SERUM 137 MMOL/L (135-148)
[2016-10-13 04:24] LABS: GLUCOSE, SERUM 327 MG/DL (60-99)
[2016-10-14 03:01] LABS: HEMATOCRIT 27.7 % (36.0-48.0); HEMOGLOBIN 9.4 g/dL (12.0-16.0); MANUAL DIFF YES %; MEAN CORPUS HGB CONC 33.9 g/dL (32.0-36.0); MEAN CORPUSCULAR HEMOGLOB 30.1 pg (26.0-34.0); MEAN CORPUSCULAR VOLUME 88.8 fL (80-100); MEAN PLATELET VOLUME 9.3 fL (9.2-13.0); NUCLEATED RED BLOOD CELLS 0.4 /100WBC (0-0); PLATELET COUNT 303 10/3/uL (150-400); RBC DISTRIBUTION WIDTH 15.3 % (12.0-16.0); RED CELL COUNT 3.12 10/6/uL (4.0-5.6); WHITE BLOOD CELLS 12.5 10/3/uL (4.5-10.5)
[2016-10-14 03:10] LABS: ALBUMIN 2.9 G/DL (3.5-5.0); CALCIUM, SERUM 9.4 MG/DL (8.5-10.4); CHLORIDE, SERUM 100 MMOL/L (96-112); CO2 (CARBON DIOXIDE) 23 MMOL/L (24-34); POTASSIUM, SERUM 4.3 MMOL/L (3.5-5.3); SODIUM, SERUM 138 MMOL/L (135-148)
[2016-10-14 03:11] LABS: BUN (BLOOD UREA NITROGEN) 71 MG/DL (6-23); CREATININE 7.29 MG/DL (0.55-1.02); GFR AFRICAN AMERICAN 6 ML/MIN (>=60); GFR NON AFRICAN AMERICAN 5 ML/MIN (>=60); GLUCOSE, SERUM 152 MG/DL (60-99); PHOSPHORUS, SERUM 6.9 MG/DL (2.5-4.5)
[2016-10-14 03:17] LABS: BAND NEUTROPHILS 2 %; LYMPHOCYTES 8 %; METAMYELOCYTES 1 %; MONOCYTES 3 %; MONOCYTES ABSOLUTE (CALC) 0.38 10/3/uL (0.21-1.20); MYELOCYTES 3 %; NEUTROPHILS ABSOLUTE (CALC) 10.63 10/3/uL (2.02-8.40); PLATELET ESTIMATE ADQ (ADEQUATE); RBC MORPHOLOGY NORM (NORMAL); SEGMENTED NEUTROPHIL (0) 83 %; TOTAL NUCLEATED CELLS 100
[2016-10-14 10:46] LABS: PROCALCITONIN 17.99 ng/mL (<0.5)
[2016-10-15 04:01] LABS: HEMATOCRIT 29.6 % (36.0-48.0); HEMOGLOBIN 9.8 g/dL (12.0-16.0); MEAN CORPUS HGB CONC 33.1 g/dL (32.0-36.0); MEAN CORPUSCULAR HEMOGLOB 30.1 pg (26.0-34.0); MEAN CORPUSCULAR VOLUME 90.8 fL (80-100); MEAN PLATELET VOLUME 9.3 fL (9.2-13.0); PLATELET COUNT 344 10/3/uL (150-400); RBC DISTRIBUTION WIDTH 15.9 % (12.0-16.0); RED CELL COUNT 3.26 10/6/uL (4.0-5.6); WHITE BLOOD CELLS 13.3 10/3/uL (4.5-10.5)
[2016-10-15 04:02] LABS: MANUAL DIFF YES %
[2016-10-15 04:14] LABS: CHLORIDE, SERUM 102 MMOL/L (96-112); CO2 (CARBON DIOXIDE) 26 MMOL/L (24-34); GLUCOSE, SERUM 138 MG/DL (60-99); SODIUM, SERUM 141 MMOL/L (135-148)
[2016-10-15 04:15] LABS: BUN (BLOOD UREA NITROGEN) 46 MG/DL (6-23); GFR AFRICAN AMERICAN 10 ML/MIN (>=60); GFR NON AFRICAN AMERICAN 8 ML/MIN (>=60); PHOSPHORUS, SERUM 3.8 MG/DL (2.5-4.5); POTASSIUM, SERUM 3.2 MMOL/L (3.5-5.3)
[2016-10-15 04:25] LABS: ANISOCYTOSIS 1+ (5-10/OIF) (0-5/OIF); BAND NEUTROPHILS 3 %; EOSINOPHILS 2 %; EOSINOPHILS ABSOLUTE (CALC) 0.27 10/3/uL (0.0-0.53); LYMPHOCYTES 5 %; LYMPHOCYTES ABSOLUTE (CALC) 0.67 10/3/uL (0.67-4.30); MONOCYTES 6 %; NEUTROPHILS ABSOLUTE (CALC) 11.57 10/3/uL (2.02-8.40); PLATELET ESTIMATE ADQ (ADEQUATE); POLYCHROMASIA 1+ (2-5/OIF) (0-1/OIF); SEGMENTED NEUTROPHIL (0) 84 %; TOTAL NUCLEATED CELLS 100
[2016-10-16 04:13] LABS: BASOPHILS 0.1 %; BASOPHILS ABSOLUTE 0.01 10/3/uL (0.0-0.16); EOSINOPHILS 0.3 %; EOSINOPHILS ABSOLUTE 0.03 10/3/uL (0.0-0.53); HEMATOCRIT 28.8 % (36.0-48.0); HEMOGLOBIN 9.5 g/dL (12.0-16.0); IMMATURE GRANULOCYTES 1.9 %; IMMATURE GRANULOCYTES ABSOLUTE 0.23 10/3/uL (0.0-0.11); LYMPHOCYTES 12.2 %; LYMPHOCYTES ABSOLUTE 1.45 10/3/uL (0.67-4.30); MANUAL DIFF NO %; MEAN CORPUSCULAR HEMOGLOB 29.4 pg (26.0-34.0); MEAN CORPUSCULAR VOLUME 89.2 fL (80-100); MEAN PLATELET VOLUME 9.2 fL (9.2-13.0); MONOCYTES 4.9 %; MONOCYTES ABSOLUTE 0.58 10/3/uL (0.21-1.20); NEUTROPHILS 80.6 %; NEUTROPHILS ABSOLUTE 9.56 10/3/uL (2.02-8.40); PLATELET COUNT 379 10/3/uL (150-400); RBC DISTRIBUTION WIDTH 15.9 % (12.0-16.0); RED CELL COUNT 3.23 10/6/uL (4.0-5.6); WHITE BLOOD CELLS 11.9 10/3/uL (4.5-10.5)
[2016-10-16 04:25] LABS: ALBUMIN 2.9 G/DL (3.5-5.0); CALCIUM, SERUM 9.5 MG/DL (8.5-10.4); CHLORIDE, SERUM 100 MMOL/L (96-112); CO2 (CARBON DIOXIDE) 22 MMOL/L (24-34); GLUCOSE, SERUM 157 MG/DL (60-99); SODIUM, SERUM 138 MMOL/L (135-148)
[2016-10-16 04:27] LABS: BUN (BLOOD UREA NITROGEN) 75 MG/DL (6-23); CREATININE 6.91 MG/DL (0.55-1.02); GFR AFRICAN AMERICAN 6 ML/MIN (>=60); GFR NON AFRICAN AMERICAN 6 ML/MIN (>=60)
[2016-10-17 04:57] LABS: BASOPHILS 0.1 %; BASOPHILS ABSOLUTE 0.02 10/3/uL (0.0-0.16); EOSINOPHILS 0.7 %; HEMATOCRIT 30.6 % (36.0-48.0); HEMOGLOBIN 10.2 g/dL (12.0-16.0); IMMATURE GRANULOCYTES 1.8 %; IMMATURE GRANULOCYTES ABSOLUTE 0.24 10/3/uL (0.0-0.11); LYMPHOCYTES 21.8 %; LYMPHOCYTES ABSOLUTE 2.91 10/3/uL (0.67-4.30); MEAN CORPUS HGB CONC 33.3 g/dL (32.0-36.0); MEAN CORPUSCULAR HEMOGLOB 29.7 pg (26.0-34.0); MEAN CORPUSCULAR VOLUME 89.2 fL (80-100); MEAN PLATELET VOLUME 9.2 fL (9.2-13.0); MONOCYTES 6.8 %; MONOCYTES ABSOLUTE 0.91 10/3/uL (0.21-1.20); NEUTROPHILS 68.8 %; NEUTROPHILS ABSOLUTE 9.17 10/3/uL (2.02-8.40); PLATELET COUNT 448 10/3/uL (150-400); RBC DISTRIBUTION WIDTH 15.9 % (12.0-16.0); RED CELL COUNT 3.43 10/6/uL (4.0-5.6); WHITE BLOOD CELLS 13.4 10/3/uL (4.5-10.5)
[2016-10-17 04:58] LABS: MANUAL DIFF NO %
[2016-10-17 05:13] LABS: A/G RATIO 0.8 (0.7-1.9); ALBUMIN 3.1 G/DL (3.5-5.0); CALCIUM, SERUM 9.2 MG/DL (8.5-10.4); CHLORIDE, SERUM 96 MMOL/L (96-112); CO2 (CARBON DIOXIDE) 22 MMOL/L (24-34); POTASSIUM, SERUM 3.9 MMOL/L (3.5-5.3); SGOT(AST) 10 U/L (5-40); SGPT(ALT) 21 U/L (5-65); SODIUM, SERUM 134 MMOL/L (135-148); TOTAL BILIRUBIN 0.9 MG/DL (0-1.2); TOTAL PROTEIN 7.1 G/DL (6.0-8.5)
[2016-10-17 05:15] LABS: ALKALINE PHOSPHATASE 105 U/L (45-117); BUN (BLOOD UREA NITROGEN) 101 MG/DL (6-23); CREATININE 8.49 MG/DL (0.55-1.02); GFR AFRICAN AMERICAN 5 ML/MIN (>=60); GFR NON AFRICAN AMERICAN 4 ML/MIN (>=60); GLUCOSE, SERUM 215 MG/DL (60-99)
[2016-10-18 04:27] LABS: BASOPHILS 0.1 %; BASOPHILS ABSOLUTE 0.01 10/3/uL (0.0-0.16); EOSINOPHILS 0.1 %; EOSINOPHILS ABSOLUTE 0.01 10/3/uL (0.0-0.53); HEMATOCRIT 30.3 % (36.0-48.0); HEMOGLOBIN 10.1 g/dL (12.0-16.0); IMMATURE GRANULOCYTES 1.7 %; IMMATURE GRANULOCYTES ABSOLUTE 0.25 10/3/uL (0.0-0.11); LYMPHOCYTES 6.8 %; LYMPHOCYTES ABSOLUTE 1.01 10/3/uL (0.67-4.30); MEAN CORPUS HGB CONC 33.3 g/dL (32.0-36.0); MEAN CORPUSCULAR HEMOGLOB 29.9 pg (26.0-34.0); MEAN CORPUSCULAR VOLUME 89.6 fL (80-100); MEAN PLATELET VOLUME 9.2 fL (9.2-13.0); MONOCYTES ABSOLUTE 0.45 10/3/uL (0.21-1.20); NEUTROPHILS 88.3 %; NEUTROPHILS ABSOLUTE 13.12 10/3/uL (2.02-8.40); PLATELET COUNT 441 10/3/uL (150-400); RBC DISTRIBUTION WIDTH 16.6 % (12.0-16.0); RED CELL COUNT 3.38 10/6/uL (4.0-5.6); WHITE BLOOD CELLS 14.9 10/3/uL (4.5-10.5)
[2016-10-18 04:29] LABS: MANUAL DIFF NO %
[2016-10-18 04:46] LABS: A/G RATIO 0.9 (0.7-1.9); ALBUMIN 3.5 G/DL (3.5-5.0); CALCIUM, SERUM 9.1 MG/DL (8.5-10.4); CHLORIDE, SERUM 102 MMOL/L (96-112); GLOBULIN 3.9 G/DL (2.5-4.1); GLUCOSE, SERUM 218 MG/DL (60-99); PHOSPHORUS, SERUM 5.9 MG/DL (2.5-4.5); POTASSIUM, SERUM 4.6 MMOL/L (3.5-5.3); SGOT(AST) 10 U/L (5-40); SGPT(ALT) 18 U/L (5-65); SODIUM, SERUM 139 MMOL/L (135-148); TOTAL BILIRUBIN 0.6 MG/DL (0-1.2); TOTAL PROTEIN 7.4 G/DL (6.0-8.5)
[2016-10-18 04:47] LABS: BUN (BLOOD UREA NITROGEN) 45 MG/DL (6-23); CO2 (CARBON DIOXIDE) 27 MMOL/L (24-34); CREATININE 4.97 MG/DL (0.55-1.02); GFR AFRICAN AMERICAN 10 ML/MIN (>=60); GFR NON AFRICAN AMERICAN 8 ML/MIN (>=60)
[2016-10-18 04:48] LABS: ALKALINE PHOSPHATASE 92 U/L (45-117)
[2016-10-19 04:21] LABS: CHLORIDE, SERUM 103 MMOL/L (96-112); GLUCOSE, SERUM 224 MG/DL (60-99); POTASSIUM, SERUM 4.7 MMOL/L (3.5-5.3); SODIUM, SERUM 139 MMOL/L (135-148)
[2016-10-19 04:22] LABS: BASOPHILS 0.1 %; BASOPHILS ABSOLUTE 0.02 10/3/uL (0.0-0.16); EOSINOPHILS 0 %; HEMATOCRIT 31.9 % (36.0-48.0); HEMOGLOBIN 10.7 g/dL (12.0-16.0); IMMATURE GRANULOCYTES 1.2 %; IMMATURE GRANULOCYTES ABSOLUTE 0.19 10/3/uL (0.0-0.11); LYMPHOCYTES 9.9 %; LYMPHOCYTES ABSOLUTE 1.51 10/3/uL (0.67-4.30); MANUAL DIFF NO %; MEAN CORPUS HGB CONC 33.5 g/dL (32.0-36.0); MEAN CORPUSCULAR HEMOGLOB 30.7 pg (26.0-34.0); MEAN CORPUSCULAR VOLUME 91.4 fL (80-100); MEAN PLATELET VOLUME 9.3 fL (9.2-13.0); MONOCYTES ABSOLUTE 0.76 10/3/uL (0.21-1.20); NEUTROPHILS 83.8 %; NEUTROPHILS ABSOLUTE 12.82 10/3/uL (2.02-8.40); PLATELET COUNT 453 10/3/uL (150-400); RBC DISTRIBUTION WIDTH 16.8 % (12.0-16.0); RED CELL COUNT 3.49 10/6/uL (4.0-5.6); WHITE BLOOD CELLS 15.3 10/3/uL (4.5-10.5)
[2016-10-19 04:24] LABS: CO2 (CARBON DIOXIDE) 21 MMOL/L (24-34)
[2016-10-19 04:25] LABS: BUN (BLOOD UREA NITROGEN) 75 MG/DL (6-23); CREATININE 6.57 MG/DL (0.55-1.02); GFR AFRICAN AMERICAN 7 ML/MIN (>=60); GFR NON AFRICAN AMERICAN 6 ML/MIN (>=60)
[2016-10-20 05:27] LABS: BASOPHILS 0.1 %; BASOPHILS ABSOLUTE 0.01 10/3/uL (0.0-0.16); EOSINOPHILS 0.1 %; EOSINOPHILS ABSOLUTE 0.01 10/3/uL (0.0-0.53); HEMATOCRIT 34.5 % (36.0-48.0); HEMOGLOBIN 11.3 g/dL (12.0-16.0); IMMATURE GRANULOCYTES 0.9 %; IMMATURE GRANULOCYTES ABSOLUTE 0.11 10/3/uL (0.0-0.11); LYMPHOCYTES 18.4 %; LYMPHOCYTES ABSOLUTE 2.23 10/3/uL (0.67-4.30); MEAN CORPUS HGB CONC 32.8 g/dL (32.0-36.0); MEAN CORPUSCULAR HEMOGLOB 30.5 pg (26.0-34.0); MEAN PLATELET VOLUME 8.9 fL (9.2-13.0); MONOCYTES ABSOLUTE 0.73 10/3/uL (0.21-1.20); NEUTROPHILS 74.5 %; PLATELET COUNT 498 10/3/uL (150-400); RBC DISTRIBUTION WIDTH 16.5 % (12.0-16.0); RED CELL COUNT 3.71 10/6/uL (4.0-5.6); WHITE BLOOD CELLS 12.1 10/3/uL (4.5-10.5)
[2016-10-20 05:32] LABS: MANUAL DIFF NO %
[2016-10-20 05:39] LABS: CALCIUM, SERUM 9.4 MG/DL (8.5-10.4); CHLORIDE, SERUM 104 MMOL/L (96-112); CO2 (CARBON DIOXIDE) 24 MMOL/L (24-34); POTASSIUM, SERUM 4.4 MMOL/L (3.5-5.3); SODIUM, SERUM 140 MMOL/L (135-148)
[2016-10-20 05:40] LABS: BUN (BLOOD UREA NITROGEN) 56 MG/DL (6-23); CREATININE 5.65 MG/DL (0.55-1.02); GFR AFRICAN AMERICAN 8 ML/MIN (>=60); GFR NON AFRICAN AMERICAN 7 ML/MIN (>=60); GLUCOSE, SERUM 170 MG/DL (60-99); PHOSPHORUS, SERUM 5.1 MG/DL (2.5-4.5)
[2016-10-21 05:10] LABS: BASOPHILS 0.1 %; BASOPHILS ABSOLUTE 0.01 10/3/uL (0.0-0.16); EOSINOPHILS 1.5 %; EOSINOPHILS ABSOLUTE 0.17 10/3/uL (0.0-0.53); HEMATOCRIT 34.2 % (36.0-48.0); HEMOGLOBIN 11.2 g/dL (12.0-16.0); IMMATURE GRANULOCYTES 0.8 %; IMMATURE GRANULOCYTES ABSOLUTE 0.09 10/3/uL (0.0-0.11); LYMPHOCYTES 33.2 %; LYMPHOCYTES ABSOLUTE 3.64 10/3/uL (0.67-4.30); MEAN CORPUS HGB CONC 32.7 g/dL (32.0-36.0); MEAN CORPUSCULAR HEMOGLOB 30.4 pg (26.0-34.0); MEAN CORPUSCULAR VOLUME 92.9 fL (80-100); MONOCYTES 10.1 %; MONOCYTES ABSOLUTE 1.11 10/3/uL (0.21-1.20); NEUTROPHILS 54.3 %; NEUTROPHILS ABSOLUTE 5.96 10/3/uL (2.02-8.40); PLATELET COUNT 519 10/3/uL (150-400); RBC DISTRIBUTION WIDTH 16.5 % (12.0-16.0); RED CELL COUNT 3.68 10/6/uL (4.0-5.6)
[2016-10-21 05:11] LABS: MANUAL DIFF NO %
[2016-10-21 05:31] LABS: CALCIUM, SERUM 9.2 MG/DL (8.5-10.4); CHLORIDE, SERUM 104 MMOL/L (96-112); CO2 (CARBON DIOXIDE) 22 MMOL/L (24-34); SODIUM, SERUM 141 MMOL/L (135-148)
[2016-10-21 05:32] LABS: BUN (BLOOD UREA NITROGEN) 80 MG/DL (6-23); CREATININE 7.69 MG/DL (0.55-1.02); GFR AFRICAN AMERICAN 6 ML/MIN (>=60); GFR NON AFRICAN AMERICAN 5 ML/MIN (>=60); GLUCOSE, SERUM 88 MG/DL (60-99); PHOSPHORUS, SERUM 7.2 MG/DL (2.5-4.5)
[2016-10-24 07:48] LABS: BASOPHILS 0.1 %; BASOPHILS ABSOLUTE 0.01 10/3/uL (0.0-0.16); EOSINOPHILS 4.8 %; EOSINOPHILS ABSOLUTE 0.34 10/3/uL (0.0-0.53); HEMOGLOBIN 10.3 g/dL (12.0-16.0); IMMATURE GRANULOCYTES 0.4 %; IMMATURE GRANULOCYTES ABSOLUTE 0.03 10/3/uL (0.0-0.11); LYMPHOCYTES 25.6 %; LYMPHOCYTES ABSOLUTE 1.83 10/3/uL (0.67-4.30); MEAN CORPUS HGB CONC 33.6 g/dL (32.0-36.0); MEAN CORPUSCULAR HEMOGLOB 30.6 pg (26.0-34.0); MEAN CORPUSCULAR VOLUME 91.1 fL (80-100); MEAN PLATELET VOLUME 9.2 fL (9.2-13.0); MONOCYTES 10.3 %; MONOCYTES ABSOLUTE 0.74 10/3/uL (0.21-1.20); NEUTROPHILS 58.8 %; PLATELET COUNT 384 10/3/uL (150-400); RBC DISTRIBUTION WIDTH 15.7 % (12.0-16.0); RED CELL COUNT 3.37 10/6/uL (4.0-5.6); WHITE BLOOD CELLS 7.2 10/3/uL (4.5-10.5)
[2016-10-24 07:51] LABS: HEMATOCRIT 30.7 % (36.0-48.0); MANUAL DIFF NO %
[2016-10-24 08:09] LABS: BUN (BLOOD UREA NITROGEN) 98 MG/DL (6-23); CHLORIDE, SERUM 100 MMOL/L (96-112); CO2 (CARBON DIOXIDE) 24 MMOL/L (24-34); CREATININE 9.67 MG/DL (0.55-1.02); GFR AFRICAN AMERICAN 4 ML/MIN (>=60); GFR NON AFRICAN AMERICAN 4 ML/MIN (>=60); GLUCOSE, SERUM 212 MG/DL (60-99); PHOSPHORUS, SERUM 7.5 MG/DL (2.5-4.5); POTASSIUM, SERUM 4.2 MMOL/L (3.5-5.3); SODIUM, SERUM 137 MMOL/L (135-148)
[2016-10-26 05:30] LABS: BASOPHILS 0.3 %; BASOPHILS ABSOLUTE 0.02 10/3/uL (0.0-0.16); EOSINOPHILS ABSOLUTE 0.27 10/3/uL (0.0-0.53); HEMATOCRIT 30.8 % (36.0-48.0); HEMOGLOBIN 10.3 g/dL (12.0-16.0); IMMATURE GRANULOCYTES 0.3 %; IMMATURE GRANULOCYTES ABSOLUTE 0.02 10/3/uL (0.0-0.11); LYMPHOCYTES 40.1 %; LYMPHOCYTES ABSOLUTE 2.74 10/3/uL (0.67-4.30); MEAN CORPUS HGB CONC 33.4 g/dL (32.0-36.0); MEAN CORPUSCULAR HEMOGLOB 30.3 pg (26.0-34.0); MEAN CORPUSCULAR VOLUME 90.6 fL (80-100); MEAN PLATELET VOLUME 9.1 fL (9.2-13.0); MONOCYTES 10.8 %; MONOCYTES ABSOLUTE 0.74 10/3/uL (0.21-1.20); NEUTROPHILS 44.5 %; NEUTROPHILS ABSOLUTE 3.04 10/3/uL (2.02-8.40); PLATELET COUNT 337 10/3/uL (150-400); RBC DISTRIBUTION WIDTH 15.1 % (12.0-16.0); WHITE BLOOD CELLS 6.8 10/3/uL (4.5-10.5)
[2016-10-26 05:31] LABS: MANUAL DIFF NO %
[2016-10-26 05:45] LABS: ALBUMIN 3.1 G/DL (3.5-5.0); BUN (BLOOD UREA NITROGEN) 57 MG/DL (6-23); CALCIUM, SERUM 9.1 MG/DL (8.5-10.4); CHLORIDE, SERUM 104 MMOL/L (96-112); CO2 (CARBON DIOXIDE) 23 MMOL/L (24-34); CREATININE 7.97 MG/DL (0.55-1.02); GFR AFRICAN AMERICAN 5 ML/MIN (>=60); GFR NON AFRICAN AMERICAN 5 ML/MIN (>=60); GLUCOSE, SERUM 128 MG/DL (60-99); PHOSPHORUS, SERUM 5.5 MG/DL (2.5-4.5); SODIUM, SERUM 137 MMOL/L (135-148)
[2016-10-27 04:10] LABS: BASOPHILS 0.1 %; BASOPHILS ABSOLUTE 0.01 10/3/uL (0.0-0.16); EOSINOPHILS 3.3 %; EOSINOPHILS ABSOLUTE 0.27 10/3/uL (0.0-0.53); HEMATOCRIT 32.4 % (36.0-48.0); HEMOGLOBIN 10.8 g/dL (12.0-16.0); IMMATURE GRANULOCYTES 0.2 %; IMMATURE GRANULOCYTES ABSOLUTE 0.02 10/3/uL (0.0-0.11); LYMPHOCYTES 27.1 %; LYMPHOCYTES ABSOLUTE 2.21 10/3/uL (0.67-4.30); MEAN CORPUS HGB CONC 33.3 g/dL (32.0-36.0); MEAN CORPUSCULAR HEMOGLOB 30.5 pg (26.0-34.0); MEAN CORPUSCULAR VOLUME 91.5 fL (80-100); MEAN PLATELET VOLUME 9.7 fL (9.2-13.0); MONOCYTES 15.7 %; MONOCYTES ABSOLUTE 1.28 10/3/uL (0.21-1.20); NEUTROPHILS 53.6 %; NEUTROPHILS ABSOLUTE 4.35 10/3/uL (2.02-8.40); PLATELET COUNT 296 10/3/uL (150-400); RBC DISTRIBUTION WIDTH 15.1 % (12.0-16.0); RED CELL COUNT 3.54 10/6/uL (4.0-5.6); WHITE BLOOD CELLS 8.1 10/3/uL (4.5-10.5)
[2016-10-27 04:12] LABS: MANUAL DIFF NO %
[2016-10-27 04:20] LABS: CALCIUM, SERUM 9.3 MG/DL (8.5-10.4); CHLORIDE, SERUM 107 MMOL/L (96-112); CO2 (CARBON DIOXIDE) 24 MMOL/L (24-34); POTASSIUM, SERUM 4.3 MMOL/L (3.5-5.3); SODIUM, SERUM 139 MMOL/L (135-148)
[2016-10-27 04:21] LABS: BUN (BLOOD UREA NITROGEN) 32 MG/DL (6-23); CREATININE 5.47 MG/DL (0.55-1.02); GFR AFRICAN AMERICAN 9 ML/MIN (>=60); GFR NON AFRICAN AMERICAN 7 ML/MIN (>=60); GLUCOSE, SERUM 154 MG/DL (60-99); PHOSPHORUS, SERUM 3.1 MG/DL (2.5-4.5)
[2016-10-28 05:25] LABS: BASOPHILS 0.3 %; BASOPHILS ABSOLUTE 0.02 10/3/uL (0.0-0.16); EOSINOPHILS 3.3 %; EOSINOPHILS ABSOLUTE 0.25 10/3/uL (0.0-0.53); HEMATOCRIT 30.8 % (36.0-48.0); HEMOGLOBIN 10.4 g/dL (12.0-16.0); IMMATURE GRANULOCYTES 0.3 %; IMMATURE GRANULOCYTES ABSOLUTE 0.02 10/3/uL (0.0-0.11); LYMPHOCYTES 32.3 %; LYMPHOCYTES ABSOLUTE 2.47 10/3/uL (0.67-4.30); MANUAL DIFF NO %; MEAN CORPUS HGB CONC 33.8 g/dL (32.0-36.0); MEAN CORPUSCULAR HEMOGLOB 30.5 pg (26.0-34.0); MEAN CORPUSCULAR VOLUME 90.3 fL (80-100); MEAN PLATELET VOLUME 9.9 fL (9.2-13.0); MONOCYTES ABSOLUTE 1.15 10/3/uL (0.21-1.20); NEUTROPHILS 48.8 %; NEUTROPHILS ABSOLUTE 3.74 10/3/uL (2.02-8.40); PLATELET COUNT 269 10/3/uL (150-400); RBC DISTRIBUTION WIDTH 14.7 % (12.0-16.0); RED CELL COUNT 3.41 10/6/uL (4.0-5.6); WHITE BLOOD CELLS 7.7 10/3/uL (4.5-10.5)
[2016-10-28 05:37] LABS: ALBUMIN 2.9 G/DL (3.5-5.0); BUN (BLOOD UREA NITROGEN) 47 MG/DL (6-23); CALCIUM, SERUM 9.6 MG/DL (8.5-10.4); CHLORIDE, SERUM 104 MMOL/L (96-112); CO2 (CARBON DIOXIDE) 23 MMOL/L (24-34); CREATININE 7.49 MG/DL (0.55-1.02); GFR AFRICAN AMERICAN 6 ML/MIN (>=60); GFR NON AFRICAN AMERICAN 5 ML/MIN (>=60); GLUCOSE, SERUM 164 MG/DL (60-99); PHOSPHORUS, SERUM 3.5 MG/DL (2.5-4.5); SODIUM, SERUM 137 MMOL/L (135-148)
[2016-10-30 07:12] LABS: FOLATE 28.8 NG/ML (>5.2); FREE T4 0.96 NG/DL (0.76-1.46); ULTRASENSITIVE TSH 1.62 MCIU/ML (0.358-3.740)
[2016-10-31 06:41] LABS: BASOPHILS 0.1 %; BASOPHILS ABSOLUTE 0.01 10/3/uL (0.0-0.16); EOSINOPHILS 5.5 %; EOSINOPHILS ABSOLUTE 0.42 10/3/uL (0.0-0.53); HEMATOCRIT 29.6 % (36.0-48.0); IMMATURE GRANULOCYTES 0.1 %; IMMATURE GRANULOCYTES ABSOLUTE 0.01 10/3/uL (0.0-0.11); LYMPHOCYTES ABSOLUTE 2.76 10/3/uL (0.67-4.30); MEAN CORPUS HGB CONC 33.8 g/dL (32.0-36.0); MEAN CORPUSCULAR HEMOGLOB 29.9 pg (26.0-34.0); MEAN CORPUSCULAR VOLUME 88.6 fL (80-100); MEAN PLATELET VOLUME 10.2 fL (9.2-13.0); MONOCYTES ABSOLUTE 0.77 10/3/uL (0.21-1.20); NEUTROPHILS 48.3 %; PLATELET COUNT 211 10/3/uL (150-400); RBC DISTRIBUTION WIDTH 14.6 % (12.0-16.0); RED CELL COUNT 3.34 10/6/uL (4.0-5.6); WHITE BLOOD CELLS 7.7 10/3/uL (4.5-10.5)
[2016-10-31 06:43] LABS: MANUAL DIFF NO %
[2016-10-31 07:58] LABS: ALBUMIN 3.1 G/DL (3.5-5.0); BUN (BLOOD UREA NITROGEN) 62 MG/DL (6-23); CALCIUM, SERUM 9.3 MG/DL (8.5-10.4); CHLORIDE, SERUM 100 MMOL/L (96-112); CO2 (CARBON DIOXIDE) 21 MMOL/L (24-34); PHOSPHORUS, SERUM 3.2 MG/DL (2.5-4.5); POTASSIUM, SERUM 4.7 MMOL/L (3.5-5.3); SODIUM, SERUM 135 MMOL/L (135-148)
[2016-10-31 07:59] LABS: CREATININE 9.16 MG/DL (0.55-1.02); GFR AFRICAN AMERICAN 5 ML/MIN (>=60); GFR NON AFRICAN AMERICAN 4 ML/MIN (>=60); GLUCOSE, SERUM 224 MG/DL (60-99)
[2016-11-01 05:14] LABS: BASOPHILS 0.3 %; BASOPHILS ABSOLUTE 0.02 10/3/uL (0.0-0.16); EOSINOPHILS 6.4 %; EOSINOPHILS ABSOLUTE 0.42 10/3/uL (0.0-0.53); HEMATOCRIT 29.4 % (36.0-48.0); HEMOGLOBIN 9.7 g/dL (12.0-16.0); IMMATURE GRANULOCYTES 0.2 %; IMMATURE GRANULOCYTES ABSOLUTE 0.01 10/3/uL (0.0-0.11); LYMPHOCYTES 37.1 %; LYMPHOCYTES ABSOLUTE 2.44 10/3/uL (0.67-4.30); MEAN CORPUSCULAR HEMOGLOB 29.8 pg (26.0-34.0); MEAN CORPUSCULAR VOLUME 90.5 fL (80-100); MEAN PLATELET VOLUME 9.3 fL (9.2-13.0); MONOCYTES ABSOLUTE 0.66 10/3/uL (0.21-1.20); NEUTROPHILS ABSOLUTE 3.03 10/3/uL (2.02-8.40); PLATELET COUNT 242 10/3/uL (150-400); RBC DISTRIBUTION WIDTH 14.7 % (12.0-16.0); RED CELL COUNT 3.25 10/6/uL (4.0-5.6); WHITE BLOOD CELLS 6.6 10/3/uL (4.5-10.5)
[2016-11-01 05:16] LABS: MANUAL DIFF NO %
[2016-11-01 05:18] LABS: ALBUMIN 3.4 G/DL (3.5-5.0); BUN (BLOOD UREA NITROGEN) 33 MG/DL (6-23); CALCIUM, SERUM 9.3 MG/DL (8.5-10.4); CHLORIDE, SERUM 104 MMOL/L (96-112); CO2 (CARBON DIOXIDE) 25 MMOL/L (24-34); CREATININE 5.38 MG/DL (0.55-1.02); GFR AFRICAN AMERICAN 9 ML/MIN (>=60); GFR NON AFRICAN AMERICAN 8 ML/MIN (>=60); GLUCOSE, SERUM 171 MG/DL (60-99); PHOSPHORUS, SERUM 2.1 MG/DL (2.5-4.5); POTASSIUM, SERUM 4.2 MMOL/L (3.5-5.3); SODIUM, SERUM 137 MMOL/L (135-148)
[2017-01-16] MEDS ORDERED: SEVE800T PO (17:23)
[2017-01-16] MEDS ORDERED: CATAPRES2 TOP (17:24)
[2017-01-16] MEDS ORDERED: NITROSTAT0.4 MG SL (17:25)
== END 2016-11-01 15:46 | DRG 207 ==
LOC: ER 06:53 → MIC 06:56 → 6NO 10-21 17:53
PROVIDERS: Emergency Medicine; Internal Medicine; Internal Medicine Critical Care Medicine; Internal Medicine Nephrology; Internal Medicine Pulmonary Disease; Nurse Practitioner; Psychiatry & Neurology Neurology; Registered Nurse
PROC: 5A1955Z Respiratory Ventilation, Greater than 96 Consecutive Hours (ICD-10-PCS; principal; 2016-10-07)
PROC: 0BH17EZ Insertion of Endotracheal Airway into Trachea, Via Natural or Artificial Opening (ICD-10-PCS; 2016-10-07)
PROC: 06HM33Z Insertion of Infusion Device into Right Femoral Vein, Percutaneous Approach (ICD-10-PCS; 2016-10-07)
PROC: B54BZZA Ultrasonography of Right Lower Extremity Veins, Guidance (ICD-10-PCS; 2016-10-07)
PROC: 5A1D60Z (ICD-10-PCS; 2016-10-07)
PROC: 0BH17EZ Insertion of Endotracheal Airway into Trachea, Via Natural or Artificial Opening (ICD-10-PCS; 2016-10-12)
PROC: 5A1955Z Respiratory Ventilation, Greater than 96 Consecutive Hours (ICD-10-PCS; 2016-10-12)
DX: J96.01 Acute respiratory failure with hypoxia (principal); I21.4 Non-ST elevation (NSTEMI) myocardial infarction; R57.0 Cardiogenic shock; N17.9 Acute kidney failure, unspecified; I13.2 Hypertensive heart and chronic kidney disease with heart failure and with stage 5 chronic kidney disease, or end stage renal disease; N18.6 End stage renal disease; I27.2 Other secondary pulmonary hypertension; E87.1 Hypo-osmolality and hyponatremia; I50.40 Unspecified combined systolic (congestive) and diastolic (congestive) heart failure; I69.954 Hemiplegia and hemiparesis following unspecified cerebrovascular disease affecting left non-dominant side; R06.1 Stridor; E11.22 Type 2 diabetes mellitus with diabetic chronic kidney disease; Z99.2 Dependence on renal dialysis; E11.42 Type 2 diabetes mellitus with diabetic polyneuropathy; E83.39 Other disorders of phosphorus metabolism; I25.10 Atherosclerotic heart disease of native coronary artery without angina pectoris; E78.5 Hyperlipidemia, unspecified; D64.9 Anemia, unspecified; E87.5 Hyperkalemia; R62.7 Adult failure to thrive; R13.10 Dysphagia, unspecified; E88.09 Other disorders of plasma-protein metabolism, not elsewhere classified; I25.5 Ischemic cardiomyopathy; E11.65 Type 2 diabetes mellitus with hyperglycemia; Z87.01 Personal history of pneumonia (recurrent); Z95.1 Presence of aortocoronary bypass graft; Z90.710 Acquired absence of both cervix and uterus; Z98.890 Other specified postprocedural states; Z89.421 Acquired absence of other right toe(s); Z88.5 Allergy status to narcotic agent; Z79.899 Other long term (current) drug therapy; Z79.82 Long term (current) use of aspirin; Z79.4 Long term (current) use of insulin; Z91.15 Patient's noncompliance with renal dialysis
CPT/HCPCS: 31500; 31720; 36415; 36600; 70551; 71010; 74000; 74230; 78452; 80048; 80053; 80069; 80202; 82085; 82140; 82330; 82533; 82550; 82607; 82746; 82803; 82805; 82947; 82962; 83036; 83540; 83550; 83605; 83735; 84100; 84132; 84145; 84295; 84439; 84443; 84484; 85014; 85018; 85025; 85610; 85730; 86850; 86900; 86901; 86920; 87040; 87070; 87205; 87641; 92610-GN; 92611-GN; 93005; 93017; 94002; 94003; 94640; 94660; 94668; 96365; 96375; 97110-GO; 97110-GP; 97162-GP; 97166-GO; 97530-GO; 97530-GP; 99291; A9270-GY; A9502; C1894; C8929; C9113; G0257; J0153; J0330; J0610; J0885; J2250; J2370; J2543; J2795; J3010; J3370; P9016; P9047; Q9957